=== PATIENT | male | born 1955 | race African-American/Black ===

== ENCOUNTER 2017-06-27 17:48 | Inpatient (IN) ==
[2017-06-27] MEDS ORDERED: SODIUM CHLORIDE 0.9% 1,000 ML IV STA (18:10)
[2017-06-27 18:34] LABS: Basophils # 0.1 10*3/uL (0.0-0.2); Basophils % 0.6 % (0.0-0.8); Eosinophils # 0.3 10*3/uL (0.0-0.87); Eosinophils % 3.5 % (0.00-10.9); Hematocrit 36.7 VOL% (42.0-52.0); Hemoglobin 12.1 GM/DL (14.0-18.0); Immature Granulocytes % 2.2 %; Immature Granulocytes Absolute 0.19 #; Lymphocytes # 1.7 10*3/uL (1.4-4.0); Lymphocytes % 19.4 % (21.2-54.2); Mean Corpuscular Hemoglobin 28 PG (27-34); Mean Corpuscular Volume 83.4 FL (87-102); Mean Platelet Volume 9.7 FL (9.6-12.0); Neutrophils # 5.5 10*3/uL (1.4-7.4); Neutrophils % 63.3 % (38.7-73.9); Platelet Count 234 T/CUMM (130-400); White Blood Count 8.7 T/CUMM (4-12)
[2017-06-27 18:58] LABS: PT Patient Result 10.1 SECS; Partial Thromboplastin Time 28.2 SECS (0-40)
[2017-06-27 19:07] LABS: Apearance,Urine CLEAR (Clear); Bilirubin,Total 1.5 MG/DL (0.2-1.0); Bilirubin,Urine Negative (Negative); Blood, Urine Negative (Negative); Calcium 8.9 MG/DL (8.5-10.1); Glucose,Urine (UA) >=500 mg/dL (Negative); Ketones,Urine Negative (Negative); Mucus,Urine Occasional /LPF (Occasional); Nitrite,Urine Negative (Negative); Osmolality,Calculated 280.9 MOS/KG (273-304); Potassium 4.4 MMOL/L (3.5-5.1); Protein,Urine 30 MG/DL; RBC,Urine <1 /HPF (0-4); Total Protein 8.1 G/DL (6.4-8.3); Urine Color Yellow (Yellow); Urine Specific Gravity 1.009 (1.001-1.035); Urine Urobilinogen < 2.0 EU/DL (0.2-1.0); WBC,Urine 5 /HPF (0-6)
--- NOTE | 2017-06-27 20:36 | Ultrasound Report ---
US abdomen limited Indication: Elevated bilirubin. Comparison: None. Technique: Using transcutaneous probe, ultrasound imaging of the right upper quadrant was performed. Ultrasound images were captured and stored. Imaged structures include the liver, gallbladder, pancreas, right kidney, aorta, and inferior vena cava. Findings: Pancreas cannot be identified secondary to bowel gas. Liver is not well-visualized. As measured, the right hepatic lobe is enlarged measuring 21 cm in craniocaudal dimension. Diffusely increased hepatic echotexture is present compared to the right renal cortex and loss of architectural detail is noted compatible with hepatic steatosis. The correct direction and spectral flow is noted within the interrogated portal venous segment. Gallbladder wall thickening is present and layering hyperechoic sludge is noted. Wall measures up to 6.2 mm. A thin rim of anechoic signal is present on some images compatible with a small amount pericholecystic fluid. The common bile duct is enlarged measuring 8.1 mm. Right kidney measures 11.3 cm in craniocaudal dimension. Impression: 1. Hyperechoic material within the gallbladder demonstrates some degree of layering, differential considerations include tumefactive sludge, focal gallbladder wall thickening, and tiny gallstones. The presence of gallbladder wall thickening associated as well as thin rim of hypoechoic echotexture suggesting pericholecystic fluid in total suggest acute cholecystitis. 2. Enlargement of the extrahepatic bile duct is noted without ultrasound evidence of choledocholithiasis. 3. Evaluation of pancreas is limited secondary to lack of visualization and bowel gas. Correlation serum lipase is recommended to exclude acute pancreatitis. 06/27/2017 8:28 PM PROCEDURE INTERPRETED AT [facility] DEPARTMENT OF RADIOLOGY Final Report Signed by: Dr. Tim Betancourt
--- NOTE | 2017-06-27 20:56 | CT Report ---
CT abdomen pelvis wo con Indication: Gallbladder mass. Comparison: Abdominal ultrasound same date. Technique: CT of the abdomen and pelvis was performed without administration of intravenous contrast. The CT examination was performed using one or more of the following dose reduction techniques: Automatic exposure control, adjustment of the mA and kV according to patient size, use of acute or iterative reconstruction techniques. Findings: A masslike focus of airspace attenuation is located within the posterior lateral right lower lobe. This measures up to 16 mm in thickness and 24 mm in longitudinal dimension. The appearance suggests that this may represent a focus of atelectasis of the lung parenchyma, follow-up will be required to determine stability. No acute findings are noted within the lower chest. STE[employer] shunt tubing enters the abdomen anterior to the liver. The tip of the shunt lies within the upper right abdomen interposed between the right hepatic lobe and the diaphragm. Noncontrast enhanced appearance of the liver suggests heterogeneous appearance of the right hepatic lobe. There is a ill-defined region of hypoattenuating echotexture laterally which measures up to 4.8 cm image #[id number] with a second ill-defined focus of hypoattenuation along the medial margin and subcapsular right hepatic lobe posterior segment image #55. These areas appear contiguous with the remainder of the liver which is diffusely low in attenuation. The liver appears enlarged. Bile ducts are not well visualized. Gallbladder demonstrates increased attenuation dependently within the gallbladder lumen. Gallbladder wall thickening demonstrated on recent ultrasound is not well visualized on this study. No pericholecystic stranding is present. Spleen is normal in size and appearance. Pancreas is grossly unremarkable. The adrenal glands demonstrate no significant abnormalities. Nonspecific bilateral perinephric fat stranding is present. Reflect scarring, acute inflammatory change, or sequelae of prior obstruction. Aorta and inferior vena cava demonstrate no significant abnormalities. Lower para-aortic lymph node is upper limits of normal in size to minimally large measuring 12 mm. Bilateral lower quadrant ostomies are demonstrated. The noncontrast enhanced appearance of small bowel is unremarkable. Stomach is unremarkable. Osseous structures demonstrate no acute findings. Severe femoral acetabular joint degenerative changes are present. Additionally ankylosis of the SI joints is suggested and facet arthropathy is moderately advanced bilaterally in the lower lumbar spine. Additionally, there is diffuse demineralization of bony structures suggested. This possibly reflects metabolic etiology. Calcification of anterior longitudinal ligament is present throughout the lumbar spine. Soft tissues and musculature of the body wall demonstrate no acute findings. Prior midline celiotomy is demonstrated. Calcified sutures are suggested along the midline of the anterior peritoneum. Impression: 1. STEAM [employer] shunt tubing terminates within the right upper quadrant interposed between the liver and the diaphragm. 2. Focal atelectasis of the right lower lobe versus mass is demonstrated. 3. Ill-defined hypoattenuation of the liver somewhat more focal within the right hepatic lobe, but contiguous with ill-defined hypoattenuating right and left hepatic lobe may reflect evidence of hepatic steatosis with focal sparing in the region of the right hepatic lobe. Further evaluation is limited secondary to lack of intravenous contrast. This region on comparison ultrasound is poorly visualized. 4. Gallbladder wall thickening demonstrated on ultrasound is not as well visualized on this modality. Intraluminal filling with tumefactive sludge, versus gallbladder wall thickening is again demonstrated. Acute cholecystitis could be considered. Extrahepatic bile duct is not well-visualized. Further evaluation of the gallbladder is not possible secondary to lack of intravenous contrast. 5. No specific abnormality of small or large bowel is demonstrated. 6. Appearance of the bony structures suggest a nonspecific pattern of demineralization. 06/27/2017 8:45 PM PROCEDURE INTERPRETED AT [facility] DEPARTMENT OF RADIOLOGY Final Report Signed by: Dr. Tim Betancourt
--- NOTE | 2017-06-27 21:00 | Emergency Department Note ---
Kiko Paul Brittany, am scribing for, and in the presence of, Stuart Chacon MD 18 :21. Oswaldo Paul Hans, MD, personally performed the services described in this documentation, ascribed by Lisa Hoover in my presence, and it is both accurate and complete . Arrival - Arrival Chief Complaint: Non-Specific ED Nursing Triage Note: pt has a ggt of 3882.blood in stool. 487 blood sugar. 1530 20u regu insulin and 20u levermir Mode of Arrival: Stretcher Limitations: No Limitations Source: Patient, RN Notes Reviewed Time Seen by Provider: 06/27/17 18:09 - History of Present Illness HPI Narrative: Patient is a 62 y/o black male presenting to the ED by EMS from [facility] for further evaluation of blood in stools, jaundice, elevated liver enzymes and elevated blood glucose levels. Patient was given 20 units of Regular Insulin and 20 units of Levamir prior to EMS arrival. Upon EMS arrival to facility patient notably still had an elevated blood glucose of 487. Patient had a GGT of 3882. Patient at this time denies any abdominal pain, chest pain, SOB, nausea or vomiting. No complaints. PMHx of Seizures, NIDDM, Colostomy. Allergies/Adverse Reactions: Allergies Allergy/AdvReac Type Severity Reaction Status Date / Time No Known Allergies Allergy Verified 02/09/17 13:52 Home Medications: Home Medications Medication Instructions Recorded Confirmed Type Acetaminophen Tab [Tylenol Tab] 650 mg PO BID 11/22/16 02/09/17 History Allopurinol 100 mg PO 0900 11/22/16 02/09/17 History Cholecalciferol (Vitamin D3) 2,000 unit PO DAILY 11/22/16 02/09/17 History [Vitamin D3] Esomeprazole Magnesium [Nexium] 40 mg PO DAILY 11/22/16 02/09/17 History Ferrous Sulfate 325 mg PO DAILY 11/22/16 02/09/17 History Folic Acid Tab 1 mg PO DAILY 11/22/16 02/09/17 History Insulin Detemir [Levemir] 15 unit SUBCUT 2100 11/22/16 02/09/17 History Lacosamide Tab [Vimpat Tab] 100 mg PO Q12H 11/22/16 02/09/17 History Multivitamin [Multivitamins] 1 each PO DAILY 11/22/16 02/09/17 History Phenytoin ER Cap [Dilantin Cap] 100 mg PO Q8H 11/22/16 02/09/17 History Valproic Acid 500 mg PO Q8H 11/22/16 02/09/17 History Alum/Mag/Simeth Liquid [Mylanta 30 ml PO Q4H PRN 02/09/17 02/09/17 History Liquid] Insulin Regular, Human [NovoLIN R] 0 - 14 units SUBCUT BID 02/09/17 02/09/17 History Review of System - Review of System 12 point system: reviewed and no additional remarkable complaints except as stated - Review of System Constitutional: Absent: chills, fever Eyes: Absent: vision change Head/Ears/Nose/Throat: Absent: nasal drainage, sore throat Respiratory: Absent: respiratory distress Cardiovascular: Absent: chest pain Gastrointestinal: Present: other (blood in stool). Absent: abdominal pain, nausea, vomiting Genitourinary male: Absent: urgency, dysuria, frequency Musculoskeletal: Absent: arm pain, back pain, leg pain, neck pain Skin: Absent: rash Medical,Surgical,& Family Hx - Medical History Neurology: History of: Seizures Endocrine: History of: Diabetes Mellitus (NIDDM) - Family History Family History: noncontributory - Social History Smoking Status: Never smoker Frequency of Alcohol Use: None Type of Drug Use: None Exam Vital Signs: Vital Signs Temperature 98.1 F 06/27/17 17:48 Pulse Rate 84 06/27/17 17:48 Respiratory Rate 18 06/27/17 18:10 Blood Pressure 128/78 06/27/17 17:48 O2 Sat by Pulse Oximetry 100 06/27/17 17:48 - General General appearance: alert, in no apparent distress - Head Head exam: Present: atraumatic, normocephalic, normal inspection - Eye Eye exam: Present: normal appearance, PERRL, EOMI - ENT ENT exam: Present: normal exam, normal oropharynx - Neck Neck exam: Present: normal inspection, full ROM, trachea midline - Chest Chest inspection: Present: normal inspection, symmetric chest wall rise - Respiratory Respiratory exam: Present: normal lung sounds bilaterally - Cardiovascular Cardiovascular exam: Present: regular rate, normal rhythm, normal heart sounds - Abdominal Exam Abdominal exam: Present: soft, normal bowel sounds, incision (scar consistent with prior abdominal surgery), other (colostomy). Absent: tenderness Course Course Narrative: The patient has evidence of biliary pancreatitis. His exam is difficult because of his mental status. Hospitalist who agreed to see him for admission. I would not recommend cholecystectomy given the patient's extensive abdominal surgery think you would be better served with conservative management such as Actigall and possible ERCP with sphincterotomy to prevent future episodes of pancreatitis Results - Labs CBC & BMP: 06/27/17 18:27 06/27/17 18:27 Lab Results: I have reviewed the patients labs Labs: Laboratory Tests 06/27/17 18:27 WBC 8.7 RBC 4.40 Hgb 12.1 L Hct 36.7 L MCV 83.4 L Plt Count 234 Lymph % (Auto) 19.4 L Toole # (Auto) 1.0 H Laboratory Tests 06/27/17 18:27 INR 1.0 PT Patient/Control Mix 10.1 Circ Anticoag PTT 28.2 Laboratory Tests 06/27/17 06/27/17 18:27 18:27 Sodium 129 L Potassium 4.4 Chloride 98 Carbon Dioxide 21 BUN 31 H Creatinine 1.60 H Glucose 383 H Total Bilirubin 1.50 H GGT 4724 H AST 98 H ALT 300 H Alkaline Phosphatase 860 H Albumin 3.0 L Globulin 5.1 H Albumin/Globulin Ratio 0.5 L Lipase 977.0 H Urine Color Yellow Urine Appearance Clear Urine pH 5.0 Ur Specific Marshall 1.009 Urine Protein 30 Urine Glucose (UA) >=500 Urine Ketones Negative Urine Blood Negative Urine Nitrate Negative Urine Bilirubin Negative Urine Urobilinogen < 2.0 H Urine Leukocytes Negative Urine RBC <1 Urine WBC 5 Urine Mucus Occasional Laboratory Tests 06/27/17 18:27 CA 19-9 Antigen 31.9 - Diagnostic Findings Procedure: Ultrasound: report reviewed by me (Abdomen US: 1. Hyperechoic material within the gallbladder demonstrates some degree of layering, differential considerations include tumefactive sludge, focal gallbladder wall thickening, and tiny gallstones. The presence of gallbladder wall thickening associated as well as thin rim of hypoechoic echotexture suggesting pericholecystic fluid in total suggest acute cholecystitis. 2. Enlargement of the extrahepatic bile duct is noted without ultrasound evidence of choledocholithiasis. 3. Evaluation of pancreas is limited secondary to lack of visualization and bowel gas. Correlation serum lipase is recommended to exclude acute pancreatitis.) Disposition Clinical Impression: Pancreatitis, acute Case discussed with: patient Disposition: Still a Patient Condition: Stable Time of Disposition: 21:00
[2017-06-27] MEDS ORDERED: GLUCAGON 1 MG VIAL IM PRN (21:28)
[2017-06-27] MEDS ORDERED: DEXTROSE 50% 25 GM/50 ML SYRINGE IV PRN (21:28)
[2017-06-27] MEDS ORDERED: ONDANSETRON 4 MG/2 ML VIAL IV PRN (21:28)
--- NOTE | 2017-06-27 21:40 | Hospitalist History & Physical ---
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 The abdominal CT showed gallbladder wall thickening was not as significant as the ultrasound. There was some sludge versus gallbladder wall thickening demonstrated. Acute cholecystitis could be considered per the CT scan. Patient 's liver seem to be having a hypoattenuating you awaiting right and left hepatic lobes possibly reflecting hepatic steatosis with focal sparing in the region of the right hepatic lobe. The CT scan also displayed a masslike focus of airspace attenuation within the posterior lateral right lower lobe. The appearance suggests that may represent a focal of atelectasis and follow-up is recommended to determine stability. This can be accomplished on an outpatient basis . The ultrasound displayed possible cholecystitis and enlargement of the extrahepatic duct. Overall the patient would be a poor surgical candidate. We will admit the patient to our service. Recheck labs. Monitor his sugar. Get GI to see him he might possibly need an ERCP and get surgery to see him for possible placement of a drain. Current Visit: Yes History of Present Illness Chief complaint: Sent from [facility] for abnormal labs increase glucose and blood in stoo History of present illness: Mr. 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 From the paperwork supplied by the [facility] they checked a GGT which displayed a little 3882. They claim that there was blood in the stool which he has a colostomy which does not have visible blood in it. He had elevated glucose at the [facility] that was treated with 20 units regular and 20 units Levemir. Upon arrival here patient sugar was still elevated received a liter of fluid. Labs have been repeated. Patient is a poor historian but reports that he got the feeling bad. He is complaining about multiple pains on his body but when you look at the places he is talking about it looks like he scratched himself. Currently per my physical exam I cannot detect any abdominal pain chest pain or shortness of breath nausea or vomiting. I was consulted to admit him through the emergency room. Home Medications Medication Instructions Recorded Confirmed Type Acetaminophen Tab [Tylenol Tab] 650 mg PO BID 11/22/16 02/09/17 History Allopurinol 100 mg PO 0900 11/22/16 02/09/17 History Cholecalciferol (Vitamin D3) 2,000 unit PO DAILY 11/22/16 02/09/17 History [Vitamin D3] Esomeprazole Magnesium [Nexium] 40 mg PO DAILY 11/22/16 02/09/17 History Ferrous Sulfate 325 mg PO DAILY 11/22/16 02/09/17 History Folic Acid Tab 1 mg PO DAILY 11/22/16 02/09/17 History Insulin Detemir [Levemir] 15 unit SUBCUT 2100 11/22/16 02/09/17 History Lacosamide Tab [Vimpat Tab] 100 mg PO Q12H 11/22/16 02/09/17 History Multivitamin [Multivitamins] 1 each PO DAILY 11/22/16 02/09/17 History Phenytoin ER Cap [Dilantin Cap] 100 mg PO Q8H 11/22/16 02/09/17 History Valproic Acid 500 mg PO Q8H 11/22/16 02/09/17 History Alum/Mag/Simeth Liquid [Mylanta 30 ml PO Q4H PRN 02/09/17 02/09/17 History Liquid] Insulin Regular, Human [NovoLIN R] 0 - 14 units SUBCUT BID 02/09/17 02/09/17 History Allergies Allergy/AdvReac Type Severity Reaction Status Date / Time No Known Allergies Allergy Verified 02/09/17 13:52 Medical,Surgical,& Family Hx - Medical History Neurology: History of: Seizures Endocrine: History of: Diabetes Mellitus (NIDDM) - Surgical History Abdominal Surgeries: Surgical HX of: Abdominal Surgery - Family History Family History: noncontributory (Unable to obtain) - Social History Smoking Status: Never smoker Frequency of Alcohol Use: None Type of Drug Use: None ROS unobtainable: due to mental status Exam - Constitutional Vitals: Period Temp Pulse Resp BP Sys/Liang Pulse Ox Last 24 Hr 98.1 F-98.1 F 84-84 18-18 128-128/78-78 100 General appearance: over weight - Head Head exam: Present: normal inspection - Eye Eye exam: Present: EOMI Pupils: Present: NALDO - ENT ENT exam: Present: normal exam - Neck Neck exam: Present: normal inspection - Respiratory Respiratory exam: Present: clear to auscultation bilaterally - Cardiovascular Cardiovascular exam: Present: regular rate and rhythm - GI/Abdominal GI/Abdominal exam: Present: normal bowel sounds, other (Colostomy in place along with a significant midline scar) - Extremities Exam Extremities exam: Present: normal inspection Results - Labs CBC & BMP: 06/27/17 18:27 06/27/17 18:27
[2017-06-27] MEDS ORDERED: VALPROIC ACID 500 MG PO SCH (21:45)
[2017-06-28] MEDS: LACOSAMIDE 50 MG TABLET PO SCH ×3 (00:19→22:29)
[2017-06-28] MEDS: PHENYTOIN ER 100 MG CAPSULE PO SCH ×4 (00:20→22:29)
[2017-06-28 06:04] LABS: Basophils % 0.5 % (0.0-0.8); Eosinophils # 0.3 10*3/uL (0.0-0.87); Eosinophils % 3.8 % (0.00-10.9); Hematocrit 35.9 VOL% (42.0-52.0); Hemoglobin 11.1 GM/DL (14.0-18.0); Immature Granulocytes % 1.9 %; Immature Granulocytes Absolute 0.15 #; Lymphocytes # 1.4 10*3/uL (1.4-4.0); Lymphocytes % 17.6 % (21.2-54.2); Mean Corpuscular HGB Conc 30.9 GM/DL (32-36); Mean Corpuscular Hemoglobin 27 PG (27-34); Mean Corpuscular Volume 86.7 FL (87-102); Mean Platelet Volume 10.3 FL (9.6-12.0); Monocytes % 12.7 % (1.7-12.7); NRBC # 0.02 10*3/uL; Neutrophils % 63.5 % (38.7-73.9); Platelet Count 203 T/CUMM (130-400); Red Blood Count 4.14 MC/CUMM (3.8-5.5); Red Cell Distribution Width 16.5 % (9.3-17.3); White Blood Count 7.8 T/CUMM (4-12)
[2017-06-28 06:31] LABS: Albumin 2.9 G/DL (3.4-5.0); Bilirubin,Total 1.3 MG/DL (0.2-1.0); Calcium 8.9 MG/DL (8.5-10.1); Osmolality,Calculated 281.1 MOS/KG (273-304); Potassium 4.3 MMOL/L (3.5-5.1); Total Protein 6.9 G/DL (6.4-8.3)
--- NOTE | 2017-06-28 07:21 | General Surgery Consult Note ---
Assessment and Plan (1) Biliary acute pancreatitis Status: Acute Assessment and plan: This patient has biliary pancreatitis and a dilated bile duct and increased LFTs. He does have some wall thickening in the gallbladder which is chronic. It is difficult to tell if he is tender on exam. He does have some guarding that is involuntary in the right upper quadrant and midepigastric region. 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 I do think an ERCP with sphincterotomy would be beneficial in order to allow passage of the sludge coming from his gallbladder if GI is agreeable to this. I would also recommend Actigall. I will continue to follow the patient. Current Visit: Yes History of Present Illness Chief complaint: Abdominal pain History of present illness: Mr. Thomas is a 62 year old male who presented to the ER with apparent pancreatitis and presumed biliary origin with sludge in the gallbladder. He is not complaining of any tenderness but he has a fairly limited exam due to his mental status. His lipase was around 1000 last night and the current lab this morning is pending. Bile duct is dilated on ultrasound. Home Medications Medication Instructions Recorded Confirmed Type Acetaminophen Tab [Tylenol Tab] 650 mg PO BID 11/22/16 02/09/17 History Allopurinol 100 mg PO 0900 11/22/16 02/09/17 History Cholecalciferol (Vitamin D3) 2,000 unit PO DAILY 11/22/16 02/09/17 History [Vitamin D3] Esomeprazole Magnesium [Nexium] 40 mg PO DAILY 11/22/16 02/09/17 History Ferrous Sulfate 325 mg PO DAILY 11/22/16 02/09/17 History Folic Acid Tab 1 mg PO DAILY 11/22/16 02/09/17 History Insulin Detemir [Levemir] 15 unit SUBCUT 2100 11/22/16 02/09/17 History Lacosamide Tab [Vimpat Tab] 100 mg PO Q12H 11/22/16 02/09/17 History Multivitamin [Multivitamins] 1 each PO DAILY 11/22/16 02/09/17 History Phenytoin ER Cap [Dilantin Cap] 100 mg PO Q8H 11/22/16 02/09/17 History Valproic Acid 500 mg PO Q8H 11/22/16 02/09/17 History Alum/Mag/Simeth Liquid [Mylanta 30 ml PO Q4H PRN 02/09/17 02/09/17 History Liquid] Insulin Regular, Human [NovoLIN R] 0 - 14 units SUBCUT BID 02/09/17 02/09/17 History Allergies Allergy/AdvReac Type Severity Reaction Status Date / Time No Known Allergies Allergy Verified 02/09/17 13:52 Medical,Surgical,& Family Hx - Medical History Neurology: History of: Seizures Endocrine: History of: Diabetes Mellitus (NIDDM) - Surgical History Neurologic Surgeries: Surgical HX of: Neurologic Surgery (Ventriculoperitoneal shunt) Abdominal Surgeries: Surgical HX of: Abdominal Surgery (Colostomy) - Social History Smoking Status: Never smoker Frequency of Alcohol Use: None Type of Drug Use: None - Constitutional Constitutional: Present: as per HPI - EENT Nose, mouth and throat: Present: as per HPI - Cardiovascular Cardiovascular: Present: as per HPI - Respiratory Respiratory: Present: as per HPI - Gastrointestinal Gastrointestinal: Present: as per HPI - Genitourinary Genitourinary: Present: as per HPI - Musculoskeletal Musculoskeletal: Present: as per HPI - Neurological Neurological: Present: as per HPI - Endocrine Endocrine: Present: as per HPI Hematologic/Lymphatic: Present: as per HPI Exam - Constitutional Vitals: Period Temp Pulse Resp BP Sys/Liang Pulse Ox Last 24 Hr 96.7 F-98.1 F 75-84 13-20 128-147/68-83 100-100 General appearance: no acute distress, over weight - Head Head exam: Present: normal inspection, normocephalic - Eye Eye exam: Present: EOMI Pupils: Present: NALDO - ENT ENT exam: Present: normal exam Mouth exam: Present: normal external inspection, normal voice - Neck Neck exam: Present: normal inspection, trachea midline - Respiratory Respiratory exam: Present: accessory muscle use, chest wall tenderness. Absent : clear to auscultation bilaterally - Cardiovascular Cardiovascular exam: Present: RRR. Absent: systolic murmur, tachycardia - GI/Abdominal GI/Abdominal exam: Present: normal bowel sounds, soft. Absent: tenderness, rebound - Extremities Exam Extremities exam: Present: normal inspection, normal capillary refill - Back Exam Back exam: Present: normal inspection - Neurological Exam Neurological exam: Present: alert, oriented X3 Speech: Present: normal - Skin Skin exam: Present: normal color, warm Results - Labs CBC & BMP: 06/28/17 05:49 06/28/17 05:49 - Diagnostic Findings Procedure: CT Abdomen and Pelvis: image reviewed by me, report reviewed by me, Ultrasound: image reviewed by me, report reviewed by me
[2017-06-28] MEDS: INSULIN REGULAR 100 UNIT/ML SUBCUT SCH ×2 (08:10→16:37)
[2017-06-28] MEDS: PANTOPRAZOLE 40 MG TABLET PO SCH (08:11)
[2017-06-28] MEDS: DIVALPROEX 500 MG TABLET PO SCH ×3 (08:11→22:29)
[2017-06-28] MEDS: URSODIOL 300 MG CAPSULE PO SCH ×2 (08:11→22:29)
[2017-06-28] MEDS: ALLOPURINOL 100 MG TABLET PO SCH (08:14)
--- NOTE | 2017-06-28 09:29 | Gastrointestinal Consult Note ---
<Gabrielle Sen - Last Filed: 06/28/17 09:21> Assessment and Plan (1) Abdominal pain Status: Acute Assessment and plan: 06/28-initial reports of abdominal pain prior to admission with findings on exam of elevated LFTs and lipase as well as imaging findings of dilated common bile duct and questionable cholecystitis and cholelithiasis. Surgery consult noted with recommendations for possible ERCP, patient nonsurgical. Noted that Actigall has been initiated. Plan an addendum to follow by Dr. Ramirez. Current Visit: Yes History of Present Illness Chief complaint: Abdominal pain History of present illness: Mr. Thomas is a 62 year old male who was admitted to the hospital with complaints of abdominal pain. Patient is a very poor historian and unable to contribute to historical information. Information is obtained from chart review. Patiently reported began "not feeling well" at the [facility] , where he is a permanent resident, and was brought to the hospital for further evaluation. Patient has a prior history of diabetes, HORSESHOER shunt, developmental delay, seizure disorder. On routine lab work at the [facility] he was found to have an elevated GGT of 3800 as well as reported blood in his stool inside his colostomy bag. He had complaints in the emergency room of some abdominal pain and at that time was found to have an elevated lipase level of 977 as well as elevated LFTs with a bilirubin of 1.5, AST 98, ALT 300, and alkaline phosphatase 860. He had an H&H of 12/36 as well. Patient had a CA-19-9 checked and was unremarkable at 31.9. He also had an abdominal ultrasound done which showed focal gallbladder wall thickening and possible tiny gallstones with suggestion of acute cholecystitis as well as enlargement of extrahepatic bile duct with a common bile duct of 8.1 mm without evidence of choledocholithiasis. Patient also underwent a noncontrasted CT with findings of ill-defined hypoattenuation of the liver in the right hepatic lobe as well as gallbladder wall thickening and findings of sludge. Surgery has consulted with patient and feels this is nonsurgical at this time with recommendations for possible ERCP. Patient does have an extensive history of abdominal surgeries related to colonic distention and intermittent volvulus in 2013 with 2 episodes of wound dehiscence following this. He also has a prior history of PEG tube placement which is no longer in use. Patient is seen this morning, resting comfortably, with good appetite noted and no complaints of pain with meal intake. Home Medications Medication Instructions Recorded Confirmed Type Acetaminophen Tab [Tylenol Tab] 650 mg PO BID 11/22/16 02/09/17 History Allopurinol 100 mg PO 0900 11/22/16 02/09/17 History Cholecalciferol (Vitamin D3) 2,000 unit PO DAILY 11/22/16 02/09/17 History [Vitamin D3] Esomeprazole Magnesium [Nexium] 40 mg PO DAILY 11/22/16 02/09/17 History Ferrous Sulfate 325 mg PO DAILY 11/22/16 02/09/17 History Folic Acid Tab 1 mg PO DAILY 11/22/16 02/09/17 History Insulin Detemir [Levemir] 15 unit SUBCUT 2100 11/22/16 02/09/17 History Lacosamide Tab [Vimpat Tab] 100 mg PO Q12H 11/22/16 02/09/17 History Multivitamin [Multivitamins] 1 each PO DAILY 11/22/16 02/09/17 History Phenytoin ER Cap [Dilantin Cap] 100 mg PO Q8H 11/22/16 02/09/17 History Valproic Acid 500 mg PO Q8H 11/22/16 02/09/17 History Alum/Mag/Simeth Liquid [Mylanta 30 ml PO Q4H PRN 02/09/17 02/09/17 History Liquid] Insulin Regular, Human [NovoLIN R] 0 - 14 units SUBCUT BID 02/09/17 02/09/17 History Allergies Allergy/AdvReac Type Severity Reaction Status Date / Time No Known Allergies Allergy Verified 02/09/17 13:52 Medical,Surgical,& Family Hx - Medical History Neurology: History of: Seizures Endocrine: History of: Diabetes Mellitus (NIDDM) - Surgical History Neurologic Surgeries: Surgical HX of: Neurologic Surgery (Ventriculoperitoneal shunt) Abdominal Surgeries: Surgical HX of: Abdominal Surgery (Colostomy) - Social History Smoking Status: Never smoker Frequency of Alcohol Use: None Type of Drug Use: None ROS unobtainable: due to mental status Exam - Constitutional Vitals: Period Temp Pulse Resp BP Sys/Liang Pulse Ox Last 24 Hr 96.7 F-98.1 F 75-84 13-20 128-147/68-83 100-100 General appearance: no acute distress, over weight - Head Head exam: Present: normal inspection, normocephalic - Eye Eye exam: Present: other (Lids and conjunctive are unremarkable). Absent: scleral icterus - ENT ENT exam: Present: normal exam, normal oropharynx - Neck Neck exam: Present: normal inspection - Respiratory Respiratory exam: Present: clear to auscultation bilaterally. Absent: rales, rhonchi, wheezes - Cardiovascular Cardiovascular exam: Present: regular rate and rhythm. Absent: diastolic murmur , JVD, systolic murmur - GI/Abdominal GI/Abdominal exam: Present: normal bowel sounds, soft. Absent: ascites, distended, mass, organomegaly, tenderness - Extremities Exam Extremities exam: Present: normal inspection, full ROM - Back Exam Back exam: Present: normal inspection - Neurological Exam Neurological exam: Present: alert, altered - Psychiatric Psychiatric exam: Present: normal affect, normal mood - Skin Skin exam: Present: normal color, warm, dry Results - Labs CBC & BMP: 06/28/17 05:49 06/28/17 05:49 Lab Results: I have reviewed the past 24 hour labs <Frank Ramirez - Last Filed: 06/28/17 19:07> History of Present Illness History of present illness: Mr. Thomas is a 62 year old male Exam - Constitutional Vitals: Period Temp Pulse Resp BP Sys/Liang Pulse Ox Last 24 Hr 96.7 F-98.3 F 75-85 13-20 131-155/68-83 100-100 Results - Labs CBC & BMP: 06/28/17 05:49 06/28/17 05:49
--- NOTE | 2017-06-28 17:56 | Hospitalist Progress Note ---
Hospitalist: Subjective Interval history: 62-year-old male who was admitted with biliary pancreatitis with elevated LFTs. Currently he denies abdominal pain and is quite calm and comfortable. Exam - Constitutional Vitals: Period Temp Pulse Resp BP Sys/Liang Pulse Ox Last 24 Hr 96.7 F-98.3 F 75-85 13-20 131-155/68-83 100-100 Exam: General: No Acute Distress HEENT: Normocephalic, atraumatic, Extra ocular movements intact Neck: Supple, No JVD Chest: Clear to auscultation B/L CV: S1 + S2 audible without murmur, gallop or rub Abd: soft, NT, Non-distended, BS + Ext: No edema Skin: No purpura, bruising or rash Rheumatologic: No Joint deformities Neurologic: No gross sensory deficits Results - Labs CBC & BMP: 06/28/17 05:49 06/28/17 05:49 - Impressions Assessment and Plan (1) Acute biliary pancreatitis Status: Acute Current Visit: Yes (2) Diabetes Status: Acute Current Visit: Yes (3) Developmentally delayed with chronic seizure disorder Status: Acute Current Visit: Yes (4) History of ONLINE EDITOR shunt Status: Acute Current Visit: Yes
[2017-06-28] MEDS: INSULIN GLARGINE 100 UNIT/ML SUBCUT SCH (22:07)
[2017-06-29 05:32] LABS: Basophils # 0.1 10*3/uL (0.0-0.2); Basophils % 0.6 % (0.0-0.8); Eosinophils # 0.3 10*3/uL (0.0-0.87); Eosinophils % 3.9 % (0.00-10.9); Hematocrit 34.4 VOL% (42.0-52.0); Hemoglobin 11.2 GM/DL (14.0-18.0); Immature Granulocytes % 1.8 %; Immature Granulocytes Absolute 0.16 #; Lymphocytes # 1.8 10*3/uL (1.4-4.0); Lymphocytes % 20.2 % (21.2-54.2); Mean Corpuscular HGB Conc 32.6 GM/DL (32-36); Mean Corpuscular Hemoglobin 27 PG (27-34); Mean Corpuscular Volume 83.5 FL (87-102); Mean Platelet Volume 10.4 FL (9.6-12.0); Monocytes # 1.2 10*3/uL (0.11-0.8); Monocytes % 13.5 % (1.7-12.7); Neutrophils # 5.2 10*3/uL (1.4-7.4); Platelet Count 209 T/CUMM (130-400); Red Blood Count 4.12 MC/CUMM (3.8-5.5); Red Cell Distribution Width 16.3 % (9.3-17.3); White Blood Count 8.7 T/CUMM (4-12)
[2017-06-29 05:38] LABS: PT Patient Result 10.3 SECS
[2017-06-29] MEDS: PHENYTOIN ER 100 MG CAPSULE PO SCH ×3 (05:39→21:20)
[2017-06-29 07:12] LABS: Calcium 9.4 MG/DL (8.5-10.1); Osmolality,Calculated 284.8 MOS/KG (273-304); Potassium 4.5 MMOL/L (3.5-5.1)
--- NOTE | 2017-06-29 07:15 | EKG Report ---
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
[2017-06-29] MEDS: INSULIN REGULAR 100 UNIT/ML SUBCUT SCH ×2 (07:39→16:11)
--- NOTE | 2017-06-29 07:49 | General Surgery Progress Note ---
Assessment and Plan (1) Biliary acute pancreatitis Status: Acute Assessment and plan: This patient is scheduled for ERCP today. Continue physical therapy. 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 The main issue I think this is a MIDDLE SCHOOL PE TEACHER shunt which sits in his gallbladder fossa and has been infected in the past with prior operations requiring revision by neurosurgery. If he does end up needing to have abdominal surgery would be ideal for him to be referred to a center that has neurosurgery coverage to assist with management of his MIDDLE SCHOOL PE TEACHER shunt perioperatively. If the cystic duct is open I think it is reasonable to give Actigall therapy and follow him clinically but we will see what the results of the ERCP show us. Current Visit: Yes Subjective Patient reports: Present: no new complaints, afebrile Exam - Constitutional Vitals: Period Temp Pulse Resp BP Sys/Liang Pulse Ox Last 24 Hr 96.5 F-98.3 F 78-100 15-20 125-155/70-77 81-100 General appearance: no acute distress, over weight - Head Head exam: Present: normal inspection, normocephalic - Eye Eye exam: Present: EOMI. Absent: scleral icterus Pupils: Present: NALDO - ENT ENT exam: Present: normal exam Mouth exam: Present: normal external inspection, normal voice - Neck Neck exam: Present: normal inspection, trachea midline - Respiratory Respiratory exam: Present: clear to auscultation bilaterally. Absent: accessory muscle use, chest wall tenderness - Cardiovascular Cardiovascular exam: Present: RRR. Absent: systolic murmur, tachycardia - GI/Abdominal GI/Abdominal exam: Present: normal bowel sounds, soft. Absent: tenderness, rebound - Extremities Exam Extremities exam: Present: normal inspection, normal capillary refill - Back Exam Back exam: Present: normal inspection - Neurological Exam Neurological exam: Present: alert, oriented X3 - Skin Skin exam: Present: normal color, warm Results - Labs CBC & BMP: 06/29/17 05:10 06/29/17 05:10
[2017-06-29] MEDS: URSODIOL 300 MG CAPSULE PO SCH ×2 (08:23→21:19)
[2017-06-29] MEDS: LACOSAMIDE 50 MG TABLET PO SCH ×2 (08:24→21:20)
[2017-06-29] MEDS: PANTOPRAZOLE 40 MG TABLET PO SCH (08:24)
[2017-06-29] MEDS: ALLOPURINOL 100 MG TABLET PO SCH (08:24)
[2017-06-29] MEDS: DIVALPROEX 500 MG TABLET PO SCH ×3 (08:25→21:19)
[2017-06-29] MEDS ORDERED: GLUCAGON 1 MG VIAL ONE (12:23)
[2017-06-29] MEDS ORDERED: PROPOFOL 200 MG/20 ML VIAL IV ONE (13:26)
[2017-06-29] MEDS ORDERED: fentaNYL 100 MCG/2 ML VIAL ONE (13:27)
[2017-06-29] MEDS ORDERED: NEOSTIGMINE 10 MG/10 ML VIAL ONE (13:27)
[2017-06-29] MEDS ORDERED: LACTATED RINGERS 1,000 ML IV ONE (13:27)
[2017-06-29] MEDS ORDERED: MIDAZOLAM 2 MG/2 ML VIAL ONE (13:27)
[2017-06-29] MEDS ORDERED: SUCCINYLCHOLINE 200 MG/10 ML VIAL ONE (13:27)
[2017-06-29] MEDS ORDERED: GLYCOPYRROLATE 0.4 MG/2 ML VIAL ONE (13:28)
--- NOTE | 2017-06-29 13:28 | Fluoroscopy Report ---
[place] ERCP Indication: Pain Comparison: None Technique: Multiple intraoperative fluoroscopic views of the biliary tree obtained during ERCP. Fluoroscopy time 4 minutes 3 seconds. 440 total images. Findings: Images obtained during ERCP procedure. There is no evidence of common ductal dilatation. Please see procedural report for details. IMPRESSION: As above. PROCEDURE INTERPRETED AT [facility] DEPARTMENT OF RADIOLOGY Final Report Signed by: Dr Supa Ag
--- NOTE | 2017-06-29 15:05 | Anesthesia Post-Op ---
Anesthesia Post OP - Post Ansesthetic Evaluation Patient seen in post op: Yes Resp: within normal limits CV: within normal limits Mental: within normal limits Temp: within normal limits [id number]-[id number]-[id number]: within normal limits Nausea and Vomiting: within normal limits Pain: within normal limits
--- NOTE | 2017-06-29 16:42 | Hospitalist Progress Note ---
Assessment and Plan (1) Abdominal pain Status: Acute Assessment and plan: Dr. granda no is appreciated. We are trying to avoid operative management of the biliary system due to the patient's STABLE HAND shunt. I am continuing to coordinate care with the continuous still operator concerning as to the next step of his care. We will recheck electrolytes and amylase lipase tomorrow Current Visit: Yes (2) History of STABLE HAND shunt Status: Acute Current Visit: Yes (3) Biliary acute pancreatitis Status: Acute Current Visit: Yes Hospitalist: Subjective Interval history: The patient was admitted the hospital with moderate pancreatitis thought to be due to biliary obstruction. ERCP does not reveal stones in the common bile duct. The patient is resting quietly at present and abdominal pain seems to be improving. Exam - Constitutional Vitals: Period Temp Pulse Resp BP Sys/Liang Pulse Ox Last 24 Hr 96.5 F-97.7 F 81-104 12-20 124-205/69-95 81-100 General appearance: no acute distress - Respiratory Respiratory exam: Present: clear to auscultation bilaterally - Cardiovascular Cardiovascular exam: Present: regular rate and rhythm Results - Labs CBC & BMP: 06/29/17 05:10 06/29/17 05:10 Lab Results: I have reviewed the past 24 hour labs
--- NOTE | 2017-06-29 19:29 | Operative Note ---
Date of procedure: 06/29/17 Pre-op diagnosis: Gallstone pancreatitis Procedure: Endoscopic retrograde cholangiopancreatography with sphincterotomy and balloon stone extraction in the operating room. 62-year-old gentleman with gallstone pancreatitis ultrasound suggests cholelithiasis elevated lipase and abnormal liver test suggestive of choledocholithiasis. Now for ERCP to further evaluate. Informed consent was obtained patient's family Patient was sedated with general anesthesia per anesthesia record. Patient was placed initially in the prone position after he was intubated however his neck was too stiff to be turned he had to be rotated to the left lateral decubitus position. The Olympus duodenal scope was inserted blindly into the esophagus the esophagus stomach pylorus duodenum appear grossly normal. A sphincterotome was utilized and the pancreatic duct appeared normal throughout the head body and tail the pancreas. Subsequently the catheter was repositioned and the biliary tree was opacified with findings of a nondilated biliary tree but suspicious filling defect for possible choledocholithiasis. The cystic duct appeared patent and gallstones were observed in the gallbladder it was elected at this point to proceed with sphincterotomy and an 8 mm sphincterotomy was performed with good hemostasis. Subsequent balloon catheter was inserted in the biliary tree and inflated times to the port of the duodenum with removal of some biliary sludge type material. Repeat cholangiogram showed no residual stone fragments. The procedure was terminated placed our procedure well he is discharged to recovery in care of anesthesia. Postop diagnosis: 1. Choledocholithiasis now status post successful ERCP sphincterotomy 2. Pancreatitis likely secondary to the above 3. Cholelithiasis with monitor clinical symptoms at this time and continue treatment with antibiotics. If clinical deterioration occurs consideration of cholecystostomy tube. Anesthesia: MAC Surgeon / Physician: Frank Ramirez Estimated blood loss: none Specimens: none sent Condition: stable Disposition: post procedure unit Results - Labs CBC & BMP: 06/29/17 05:10 06/29/17 05:10 Discharge Plan - Discharge Medications No Action Lacosamide Tab [Vimpat Tab] 100 mg PO Q12H Ferrous Sulfate 325 mg PO DAILY Acetaminophen Tab [Tylenol Tab] 650 mg PO BID Insulin Regular, Human [NovoLIN R] 0 - 14 units SUBCUT BID Insulin Detemir [Levemir] 15 unit SUBCUT 2100 Folic Acid Tab 1 mg PO DAILY Cholecalciferol (Vitamin D3) [Vitamin D3] 2,000 unit PO DAILY Valproic Acid 500 mg PO Q8H Allopurinol 100 mg PO 0900 Phenytoin ER Cap [Dilantin Cap] 100 mg PO Q8H Multivitamin [Multivitamins] 1 each PO DAILY Esomeprazole Magnesium [Nexium] 40 mg PO DAILY Alum/Mag/Simeth Liquid [Mylanta Liquid] 30 ml PO Q4H PRN PRN Reason: Indigestion - Follow Up or Referral - Forms/Instructions
[2017-06-29] MEDS: INSULIN GLARGINE 100 UNIT/ML SUBCUT SCH (21:19)
[2017-06-30] MEDS: PHENYTOIN ER 100 MG CAPSULE PO SCH ×3 (05:27→22:36)
[2017-06-30 07:13] LABS: Basophils % 0.3 % (0.0-0.8); Eosinophils # 0.2 10*3/uL (0.0-0.87); Eosinophils % 1.6 % (0.00-10.9); Hematocrit 34.5 VOL% (42.0-52.0); Hemoglobin 11.1 GM/DL (14.0-18.0); Immature Granulocytes % 1.2 %; Immature Granulocytes Absolute 0.12 #; Lymphocytes # 1.2 10*3/uL (1.4-4.0); Lymphocytes % 11.8 % (21.2-54.2); Mean Corpuscular HGB Conc 32.2 GM/DL (32-36); Mean Corpuscular Hemoglobin 27 PG (27-34); Mean Corpuscular Volume 83.9 FL (87-102); Mean Platelet Volume 10.2 FL (9.6-12.0); Monocytes # 1.2 10*3/uL (0.11-0.8); Neutrophils # 7.6 10*3/uL (1.4-7.4); Neutrophils % 73.1 % (38.7-73.9); Platelet Count 212 T/CUMM (130-400); Red Blood Count 4.11 MC/CUMM (3.8-5.5); Red Cell Distribution Width 15.9 % (9.3-17.3); White Blood Count 10.3 T/CUMM (4-12)
[2017-06-30 07:48] LABS: Bilirubin,Total 1.9 MG/DL (0.2-1.0); Calcium 9.3 MG/DL (8.5-10.1); Osmolality,Calculated 288.7 MOS/KG (273-304); Potassium 4.4 MMOL/L (3.5-5.1); Total Protein 7.1 G/DL (6.4-8.3)
[2017-06-30] MEDS: INSULIN REGULAR 100 UNIT/ML SUBCUT SCH ×2 (08:53→16:41)
--- NOTE | 2017-06-30 09:27 | Gastrointestinal Progress Note ---
<FrancyGabrielle Luz - Last Filed: 06/30/17 09:25> Assessment and Plan (1) Abdominal pain Status: Acute Assessment and plan: 06/30-no complaints of abdominal pain. ERCP findings noted as below. Lipase elevated today. Continue n.p.o. at present time. Recheck lipase levels tomorrow. Plan an addendum to follow by Dr. Ramirez. 06/28-initial reports of abdominal pain prior to admission with findings on exam of elevated LFTs and lipase as well as imaging findings of dilated common bile duct and questionable cholecystitis and cholelithiasis. Surgery consult noted with recommendations for possible ERCP, patient nonsurgical. Noted that Actigall has been initiated. Plan an addendum to follow by Dr. Ramirez. Current Visit: Yes Gastroenterology - PN: Subj Interval history: CC: Gallstone pancreatitis Patient is seen, sitting up in bed awake and alert. He appears to be resting comfortably and denies any abdominal pain. He denies any nausea or vomiting. ERCP findings noted with choledocholithiasis and sphincterotomy on yesterday. He is afebrile without leukocytosis this morning. Bilirubin is slightly elevated at 1.9 with no significant changes in his transaminases. Lipase is significantly elevated this morning at 8187. Patient is currently n.p.o. at this time. Abdomen is soft, nontender. ROS: Denies shortness of breath or chest pain Exam (Progress Note) - Constitutional Vitals: Period Temp Pulse Resp BP Sys/Liang Pulse Ox Last 24 Hr 96.6 F-97.7 F 81-104 12-20 124-205/67-95 96-100 General appearance: normal weight, no acute distress - Head Head exam: Present: normal inspection, normocephalic - Eye Eye exam: Present: other (Lids and conjunctivae are unremarkable). Absent: scleral icterus - ENT ENT exam: Present: normal exam, normal oropharynx - Neck Neck exam: Present: normal inspection - Respiratory Respiratory exam: Present: clear to auscultation bilaterally. Absent: rales, rhonchi, wheezes - Cardiovascular Cardiovascular exam: Present: regular rate and rhythm. Absent: diastolic murmur , JVD, systolic murmur - GI/Abdominal GI/Abdominal exam: Present: normal bowel sounds, soft. Absent: ascites, distended, mass, organomegaly, tenderness - Extremities Exam Extremities exam: Present: normal inspection, full ROM - Back Exam Back exam: Present: normal inspection - Neurological Exam Neurological exam: Present: alert, oriented X3 - Psychiatric Psychiatric exam: Present: normal affect, normal mood - Skin Skin exam: Present: normal color, warm, dry Results - Labs CBC & BMP: 06/30/17 05:38 06/30/17 05:38 Lab Results: I have reviewed the past 24 hour labs <Frank Ramirez - Last Filed: 06/30/17 18:27> Exam (Progress Note) - Constitutional Vitals: Period Temp Pulse Resp BP Sys/Liang Pulse Ox Last 24 Hr 96.6 F-97.7 F 88-94 18-20 129-145/67-84 94-100 Results - Labs CBC & BMP: 06/30/17 05:38 06/30/17 05:38
--- NOTE | 2017-06-30 11:00 | Hospitalist Progress Note ---
Hospitalist: Subjective Interval history: 62-year-old male who was admitted with biliary pancreatitis with elevated LFTs. Currently he denies abdominal pain and is quite calm and comfortable. Exam - Constitutional Vitals: Period Temp Pulse Resp BP Sys/Liang Pulse Ox Last 24 Hr 96.6 F-97.7 F 81-104 12-20 124-205/67-95 96-100 Exam: General: No Acute Distress HEENT: Normocephalic, atraumatic, Extra ocular movements intact Neck: Supple, No JVD Chest: Clear to auscultation B/L CV: S1 + S2 audible without murmur, gallop or rub Abd: soft, NT, Non-distended, BS + Ext: No edema Skin: No purpura, bruising or rash Rheumatologic: No Joint deformities Neurologic: No gross sensory deficits Results - Labs CBC & BMP: 06/30/17 05:38 06/30/17 05:38 - Impressions - Impressions Assessment and Plan (1) Acute biliary pancreatitis Status: Acute Current Visit: Yes The patient had a successful ERCP with stone removal and sphincterotomy yesterday. Advance diet slowly. 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
[2017-06-30] MEDS: LACOSAMIDE 50 MG TABLET PO SCH ×2 (12:13→22:36)
[2017-06-30] MEDS: URSODIOL 300 MG CAPSULE PO SCH ×2 (12:13→22:36)
[2017-06-30] MEDS: PANTOPRAZOLE 40 MG TABLET PO SCH (12:14)
[2017-06-30] MEDS: ALLOPURINOL 100 MG TABLET PO SCH (12:14)
[2017-06-30] MEDS: DIVALPROEX 500 MG TABLET PO SCH ×3 (12:14→22:36)
--- NOTE | 2017-06-30 14:19 | General Surgery Progress Note ---
Assessment and Plan (1) Biliary acute pancreatitis Status: Acute Assessment and plan: The patient had a successful ERCP with stone removal and sphincterotomy yesterday. His exam is difficult to sort out but his lipase did bump up significantly so I think we should keep him n.p.o. today and continue IV fluids and we will try to advance his diet tomorrow if his labs are improving. Current Visit: Yes Subjective Patient reports: Present: no new complaints, afebrile Exam - Constitutional Vitals: Period Temp Pulse Resp BP Sys/Liang Pulse Ox Last 24 Hr 96.6 F-97.7 F 86-94 15-20 125-145/67-84 96-100 General appearance: no acute distress, over weight - Head Head exam: Present: normal inspection, normocephalic - Eye Eye exam: Present: EOMI. Absent: scleral icterus Pupils: Present: NALDO - ENT ENT exam: Present: normal exam Mouth exam: Present: normal external inspection, normal voice - Neck Neck exam: Present: normal inspection, trachea midline - Respiratory Respiratory exam: Present: clear to auscultation bilaterally. Absent: accessory muscle use, chest wall tenderness - Cardiovascular Cardiovascular exam: Present: RRR. Absent: systolic murmur, tachycardia - GI/Abdominal GI/Abdominal exam: Present: soft. Absent: tenderness, rebound - Extremities Exam Extremities exam: Present: normal inspection, normal capillary refill - Back Exam Back exam: Present: normal inspection - Neurological Exam Neurological exam: Present: alert Speech: Present: normal - Skin Skin exam: Present: normal color, warm Results - Labs CBC & BMP: 06/30/17 05:38 06/30/17 05:38
[2017-06-30] MEDS: LACTATED RINGERS 1,000 ML IV SCH (16:41)
[2017-06-30] MEDS: INSULIN GLARGINE 100 UNIT/ML SUBCUT SCH (22:15)
[2017-07-01] MEDS: LACTATED RINGERS 1,000 ML IV SCH ×3 (01:02→16:10)
[2017-07-01] MEDS: PHENYTOIN ER 100 MG CAPSULE PO SCH ×3 (05:55→21:49)
--- NOTE | 2017-07-01 09:16 | Gastrointestinal Progress Note ---
<FrancyGabrielle Luz - Last Filed: 07/01/17 09:13> Assessment and Plan (1) Abdominal pain Status: Acute Assessment and plan: 07/01-complaints of abdominal pain. Lipase trending down to 2235. Could slowly start to increase diet as tolerated today. Plan an addendum to follow by Dr. Ramirez 06/30-no complaints of abdominal pain. ERCP findings noted as below. Lipase elevated today. Continue n.p.o. at present time. Recheck lipase levels tomorrow. Plan an addendum to follow by Dr. Ramirez. 06/28-initial reports of abdominal pain prior to admission with findings on exam of elevated LFTs and lipase as well as imaging findings of dilated common bile duct and questionable cholecystitis and cholelithiasis. Surgery consult noted with recommendations for possible ERCP, patient nonsurgical. Noted that Actigall has been initiated. Plan an addendum to follow by Dr. Ramirez. Current Visit: Yes Gastroenterology - PN: Subj Interval history: CC: Abdominal pain Patient is seen, awake and alert. He denies any abdominal pain nausea or vomiting at this time. He remains n.p.o. due to his elevated lipase levels however these have trended down today to 2235. Abdomen is soft, nontender. No repeat LFTs noted today. ROS: Denies shortness of breath or chest pain Exam (Progress Note) - Constitutional Vitals: Period Temp Pulse Resp BP Sys/Liang Pulse Ox Last 24 Hr 97.0 F-97.6 F 80-91 18-20 124-152/63-73 94-99 General appearance: normal weight, no acute distress - Head Head exam: Present: normal inspection, normocephalic - Eye Eye exam: Present: other (Lids and conjunctivae are unremarkable). Absent: scleral icterus - ENT ENT exam: Present: normal exam, normal oropharynx - Neck Neck exam: Present: normal inspection - Respiratory Respiratory exam: Present: clear to auscultation bilaterally. Absent: rales, rhonchi, wheezes - Cardiovascular Cardiovascular exam: Present: regular rate and rhythm. Absent: diastolic murmur , JVD, systolic murmur - GI/Abdominal GI/Abdominal exam: Present: normal bowel sounds, soft. Absent: ascites, distended, mass, organomegaly, tenderness - Extremities Exam Extremities exam: Present: normal inspection, full ROM - Back Exam Back exam: Present: normal inspection - Neurological Exam Neurological exam: Present: alert, oriented X3 - Psychiatric Psychiatric exam: Present: normal affect, normal mood - Skin Skin exam: Present: normal color, warm, dry Results - Labs CBC & BMP: 06/30/17 05:38 06/30/17 05:38 Lab Results: I have reviewed the past 24 hour labs <Frank Ramirez - Last Filed: 07/01/17 16:28> Exam (Progress Note) - Constitutional Vitals: Period Temp Pulse Resp BP Sys/Liang Pulse Ox Last 24 Hr 97.1 F-97.6 F 80-104 18-20 124-152/63-79 95-99 Results - Labs CBC & BMP: 06/30/17 05:38 07/01/17 05:17
[2017-07-01] MEDS: INSULIN REGULAR 100 UNIT/ML SUBCUT SCH ×2 (09:29→17:31)
[2017-07-01] MEDS: PANTOPRAZOLE 40 MG TABLET PO SCH (09:29)
[2017-07-01] MEDS: LACOSAMIDE 50 MG TABLET PO SCH ×2 (09:29→21:53)
[2017-07-01] MEDS: URSODIOL 300 MG CAPSULE PO SCH ×2 (09:29→21:49)
[2017-07-01] MEDS: DIVALPROEX 500 MG TABLET PO SCH ×3 (09:29→21:49)
[2017-07-01] MEDS: ALLOPURINOL 100 MG TABLET PO SCH (09:29)
--- NOTE | 2017-07-01 10:19 | General Surgery Progress Note ---
Assessment and Plan (1) Biliary acute pancreatitis Status: Acute Assessment and plan: The patient's lipase is down today to 1999. He says that he is tolerating a diet but is still n.p.o. in the computer. I think since he does not have an impressive abdominal exam and his lipase is improving but it would be okay to give him liquids today and just see how he does with this. I tried to explain to him in detail his condition and the reason that we are not pursuing cholecystectomy at this time but I am not completely sure that he grasps the information completely. Again as long as he improves during this admission and there are no further episodes to make us think that he is having symptomatic disease in his gallbladder I think the best treatment would be nonoperative at this time. If he does develop recurrent episodes even after sphincterotomy then we can revisit the possibility of cholecystectomy but this would likely need to be done at a facility with neurosurgery available in case there are issues with his TREE CLIMBER shunt which sits right near his gallbladder fossa. I will continue to follow him while he is here but if he discharges home I will plan to see him back in clinic in about a month see how he is doing at that time. He needs to continue his Actigall after discharge per Current Visit: Yes Subjective Patient reports: Present: no new complaints, tolerating a regular diet, afebrile Exam - Constitutional Vitals: Period Temp Pulse Resp BP Sys/Liang Pulse Ox Last 24 Hr 97.0 F-97.6 F 80-91 18-20 124-152/63-73 94-99 General appearance: no acute distress, over weight - Head Head exam: Present: normal inspection, normocephalic - Eye Eye exam: Present: EOMI. Absent: conjunctival injection Pupils: Present: NALDO - ENT ENT exam: Present: normal exam Mouth exam: Present: normal external inspection, normal voice - Neck Neck exam: Present: normal inspection, trachea midline - Respiratory Respiratory exam: Present: clear to auscultation bilaterally. Absent: accessory muscle use, chest wall tenderness - Cardiovascular Cardiovascular exam: Present: RRR. Absent: systolic murmur, tachycardia - GI/Abdominal GI/Abdominal exam: Present: normal bowel sounds, soft - Extremities Exam Extremities exam: Present: normal inspection, normal capillary refill - Back Exam Back exam: Present: normal inspection - Neurological Exam Neurological exam: Present: alert, oriented X3 Speech: Present: normal - Skin Skin exam: Present: normal color, warm Results - Labs CBC & BMP: 06/30/17 05:38 06/30/17 05:38
[2017-07-01 11:56] LABS: Albumin 2.8 G/DL (3.4-5.0); Bilirubin,Total 1.2 MG/DL (0.2-1.0); Calcium 9.1 MG/DL (8.5-10.1); Osmolality,Calculated 288.3 MOS/KG (273-304); Potassium 4.1 MMOL/L (3.5-5.1); Total Protein 6.8 G/DL (6.4-8.3)
--- NOTE | 2017-07-01 18:16 | Hospitalist Progress Note ---
Hospitalist: Subjective Interval history: No abdominal pain today Exam - Constitutional Vitals: Period Temp Pulse Resp BP Sys/Liang Pulse Ox Last 24 Hr 97.1 F-97.6 F 80-104 18-20 124-152/63-79 95-100 Exam: General: No Acute Distress HEENT: Normocephalic, atraumatic, Extra ocular movements intact Neck: Supple, No JVD Chest: Clear to auscultation B/L CV: S1 + S2 audible without murmur, gallop or rub Abd: soft, NT, Non-distended, BS + Ext: No edema Skin: No purpura, bruising or rash Rheumatologic: No Joint deformities Neurologic: No gross sensory deficits Results - Labs CBC & BMP: 06/30/17 05:38 07/01/17 05:17 - Impressions Assessment and Plan (1) Acute biliary pancreatitis Status: Acute Current Visit: Yes The patient had a successful ERCP with stone removal and sphincterotomy 06/30.. Advance diet slowly. 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
[2017-07-01] MEDS: INSULIN GLARGINE 100 UNIT/ML SUBCUT SCH (21:49)
[2017-07-02 06:25] LABS: Albumin 2.6 G/DL (3.4-5.0); Bilirubin,Total 1.6 MG/DL (0.2-1.0); Calcium 9.2 MG/DL (8.5-10.1); Osmolality,Calculated 284.3 MOS/KG (273-304); Total Protein 6.2 G/DL (6.4-8.3)
[2017-07-02] MEDS: LACTATED RINGERS 1,000 ML IV SCH ×4 (06:31→21:43)
[2017-07-02] MEDS: PHENYTOIN ER 100 MG CAPSULE PO SCH ×3 (06:31→21:42)
[2017-07-02] MEDS: URSODIOL 300 MG CAPSULE PO SCH ×2 (09:02→20:30)
[2017-07-02] MEDS: DIVALPROEX 500 MG TABLET PO SCH ×3 (09:02→20:30)
[2017-07-02] MEDS: PANTOPRAZOLE 40 MG TABLET PO SCH (09:02)
[2017-07-02] MEDS: ALLOPURINOL 100 MG TABLET PO SCH (09:02)
[2017-07-02] MEDS: LACOSAMIDE 50 MG TABLET PO SCH ×2 (09:02→20:30)
[2017-07-02] MEDS: INSULIN REGULAR 100 UNIT/ML SUBCUT SCH ×2 (09:03→17:02)
--- NOTE | 2017-07-02 10:23 | General Surgery Progress Note ---
Assessment and Plan (1) Biliary acute pancreatitis Status: Acute Assessment and plan: Impression: Biliary pancreatitis Plan: Status post ERCP. Pain has resolved. His lipase is improved. Bilirubin 1.5 today. Advance diet as tolerated and recheck LFTs tomorrow. Current Visit: Yes Subjective Patient reports: Present: no new complaints, feels better Narrative: Patient says he has no pain and feels better. He has been tolerating his diet. Afebrile vital signs stable. Exam - Constitutional Vitals: Period Temp Pulse Resp BP Sys/Liang Pulse Ox Last 24 Hr 96.6 F-97.6 F 76-104 16-20 126-137/64-79 95-100 General appearance: no acute distress - Head Head exam: Present: normocephalic - Respiratory Respiratory exam: Present: clear to auscultation bilaterally - Cardiovascular Cardiovascular exam: Present: RRR - GI/Abdominal GI/Abdominal exam: Present: normal bowel sounds, soft (Nontender nondistended) - Neurological Exam Neurological exam: Present: alert Speech: Present: abnormal (Difficult to understand) - Skin Skin exam: Present: normal color Results - Labs CBC & BMP: 06/30/17 05:38 07/02/17 05:06 Lab Results: I have reviewed the past 24 hour labs
--- NOTE | 2017-07-02 14:01 | Hospitalist Progress Note ---
Hospitalist: Subjective Interval history: Patient denies any abdominal pain today. Exam - Constitutional Vitals: Period Temp Pulse Resp BP Sys/Liang Pulse Ox Last 24 Hr 96.6 F-98.9 F 76-89 16-18 127-137/63-74 98-100 Exam: General: No Acute Distress HEENT: Normocephalic, atraumatic, Extra ocular movements intact Neck: Supple, No JVD Chest: Clear to auscultation B/L CV: S1 + S2 audible without murmur, gallop or rub Abd: soft, NT, Non-distended, BS + Ext: No edema Skin: No purpura, bruising or rash Rheumatologic: No Joint deformities Neurologic: No gross sensory deficits Results - Labs CBC & BMP: 06/30/17 05:38 07/02/17 05:06 - Impressions Assessment and Plan (1) Acute biliary pancreatitis Status: Acute Current Visit: Yes The patient had a successful ERCP with stone removal and sphincterotomy 06/30. 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
[2017-07-02] MEDS: INSULIN GLARGINE 100 UNIT/ML SUBCUT SCH (20:30)
[2017-07-03] MEDS: PHENYTOIN ER 100 MG CAPSULE PO SCH (05:42)
[2017-07-03] MEDS: LACTATED RINGERS 1,000 ML IV SCH ×4 (05:43→22:29)
[2017-07-03 05:50] LABS: Albumin 2.6 G/DL (3.4-5.0); Bilirubin,Direct 0.8 MG/DL (0.0-0.20); Bilirubin,Indirect 0.4 MG/DL (0.0-1.0); Bilirubin,Total 1.2 MG/DL (0.2-1.0); Total Protein 6.2 G/DL (6.4-8.3)
[2017-07-03] MEDS ORDERED: LORazepam 2 MG/1 ML VIAL IV PRN (09:13)
[2017-07-03] MEDS: URSODIOL 300 MG CAPSULE PO SCH ×2 (09:16→20:40)
[2017-07-03] MEDS: DIVALPROEX 500 MG TABLET PO SCH (09:16)
[2017-07-03] MEDS: LACOSAMIDE 50 MG TABLET PO SCH (09:16)
[2017-07-03] MEDS: PANTOPRAZOLE 40 MG TABLET PO SCH (09:16)
[2017-07-03] MEDS: ALLOPURINOL 100 MG TABLET PO SCH (09:16)
[2017-07-03] MEDS: INSULIN REGULAR 100 UNIT/ML SUBCUT SCH ×2 (09:22→17:22)
--- NOTE | 2017-07-03 10:42 | Hospitalist Progress Note ---
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 . He is Status post ERCP. He was not an ideal surgical candidate. He has a history of known seizure disorder and on several seizure medications. This morning he had a generalized tonic-clonic seizure seizure witnessed by the nursing staff lasting about 15 seconds resolved spontaneously. He had another one that resolved with IV Ativan. Subsequently he was switched to IV seizure medication and neurology has been consulted Exam - Constitutional Vitals: Period Temp Pulse Resp BP Sys/Liang Pulse Ox Last 24 Hr 97.1 F-98.9 F 68-90 16-20 125-162/63-85 97-100 Exam: General: No Acute Distress HEENT: Normocephalic, atraumatic, Extra ocular movements intact Neck: Supple, No JVD Chest: Clear to auscultation B/L CV: S1 + S2 audible without murmur, gallop or rub Abd: soft, NT, Non-distended, BS + Ext: No edema Skin: No purpura, bruising or rash Rheumatologic: No Joint deformities Neurologic: No gross sensory deficits Results - Labs CBC & BMP: 07/03/17 12:12 07/03/17 04:29 - Impressions Assessment and Plan (1) Acute biliary pancreatitis Status: Acute Current Visit: Yes The patient had a successful ERCP with stone removal and sphincterotomy 06/30. 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
[2017-07-03 10:53] LABS: Calcium 8.9 MG/DL (8.5-10.1); Magnesium 1.5 MG/DL (1.8-2.4); Osmolality,Calculated 281.4 MOS/KG (273-304); Potassium 4.2 MMOL/L (3.5-5.1)
--- NOTE | 2017-07-03 11:16 | General Surgery Progress Note ---
Assessment and Plan (1) Biliary acute pancreatitis Status: Acute Assessment and plan: Impression: Biliary pancreatitis Plan: Status post ERCP. Pain has resolved. His lipase is improved. Bilirubin 1.5 today. Advance diet as tolerated and recheck LFTs tomorrow. Current Visit: Yes Subjective Narrative: Patient had a seizure overnight. Since then he is being given Ativan is somewhat somnolent and has not been eating. A status post ERCP and his bilirubin is trending down. He was examined but never really woke up I did not elicit any significant tenderness. He has medical problems that will now have to be addressed but as far as his surgical issues things seem to be improving. Exam - Constitutional Vitals: Period Temp Pulse Resp BP Sys/Liang Pulse Ox Last 24 Hr 97.1 F-98.9 F 68-90 16-20 125-162/63-85 97-100 Results - Labs CBC & BMP: 06/30/17 05:38 07/03/17 04:29
--- NOTE | 2017-07-03 11:41 | XRay Report ---
History: Seizure. Evaluate for aspiration Date: 07/03/2017 Study: Chest x-ray AP portable Comparison exam: October 04, 2014 chest x-ray There is stable mild cardiomegaly. The mediastinal contours are unchanged. The pulmonary vasculature is not engorged. Ventriculoperitoneal shunt tubing overlies the right chest. There is some minor strandy subsegmental atelectasis or scarring in the right lung base. The lungs and pleural spaces are otherwise generally clear. Osseous structures are similar. There is mild thoracic spondylosis. Impression: Mild strandy scar or subsegmental atelectasis right lung base. Otherwise unchanged PROCEDURE INTERPRETED AT [facility] DEPARTMENT OF RADIOLOGY Final Report Signed by: Dr. Holly Green
[2017-07-03] MEDS ORDERED: LACOSAMIDE INJ 100 MG in SODIUM CHLORIDE 0.9% 50 ML IV SCH (12:00)
--- NOTE | 2017-07-03 12:04 | CT Report ---
History: Seizure Date: 07/03/2017 Study: CT head without contrast Comparison exam: October 07, [address] sections were obtained through the head without IV contrast. Total DLP measures 2273.2 mGy*cm. This CT exam was performed using one or more the following dose reduction techniques: Automated exposure control, adjustment of the MA and/or KV according to patient size, or use of iterative reconstruction technique. A right parietal ventricular shunt is positioned with its tip in the temporal horn of the left lateral ventricle. The ventricles are midline in position. There is no interval change in the size of the ventricles compared to the previous study. There is thought to be an element of cerebral atrophy present with associated ventricular enlargement. There is asymmetric enlargement of the left frontal horn and left temporal horn related to chronic ischemia or encephalomalacia in these areas as before. There is no new mass or parenchymal hemorrhage. There is no gross CT evidence of acute cortical stroke. There is no extra-axial hematoma. There is chronic right sphenoid sinusitis with complete opacification of the right sphenoid sinus and some sclerosis of the sinus louis. The sinuses are otherwise generally clear. Impression: No adverse interval change compared to the previous study. Stable appearance of the ventricles in this patient with a right parietal ventricular shunt. Previous chronic ischemia or encephalomalacia left frontal and temporal lobes as before. Chronic right sphenoid sinusitis PROCEDURE INTERPRETED AT [facility] DEPARTMENT OF RADIOLOGY Final Report Signed by: Dr. Holly Green
[2017-07-03 12:38] LABS: Basophils % 0.5 % (0.0-0.8); Eosinophils # 0.3 10*3/uL (0.0-0.87); Eosinophils % 3.6 % (0.00-10.9); Hematocrit 29.9 VOL% (42.0-52.0); Immature Granulocytes % 1.9 %; Immature Granulocytes Absolute 0.15 #; Lymphocytes # 0.9 10*3/uL (1.4-4.0); Lymphocytes % 11.5 % (21.2-54.2); Mean Corpuscular HGB Conc 33.4 GM/DL (32-36); Mean Corpuscular Hemoglobin 27 PG (27-34); Mean Corpuscular Volume 81.9 FL (87-102); Mean Platelet Volume 10.1 FL (9.6-12.0); Monocytes # 0.9 10*3/uL (0.11-0.8); Monocytes % 10.7 % (1.7-12.7); Neutrophils # 5.8 10*3/uL (1.4-7.4); Neutrophils % 71.8 % (38.7-73.9); Platelet Count 197 T/CUMM (130-400); Red Blood Count 3.65 MC/CUMM (3.8-5.5); Red Cell Distribution Width 15.3 % (9.3-17.3)
[2017-07-03] MEDS ORDERED: VALPROIC ACID INJ 1,000 MG in SODIUM CHLORIDE 0.9% 100 ML IV SCH (13:00)
[2017-07-03] MEDS: LACOSAMIDE INJ 150 MG in SODIUM CHLORIDE 0.9% 50 ML IV SCH ×2 (13:28→20:40)
[2017-07-03] MEDS: PHENYTOIN 100 MG/2 ML VIAL IV SCH ×2 (14:32→21:01)
[2017-07-03] MEDS: VALPROIC ACID INJ 500 MG in SODIUM CHLORIDE 0.9% 100 ML IV SCH ×2 (14:33→22:29)
[2017-07-03] MEDS ORDERED: MAGNESIUM SULF RIDER 2 GM in PREMIX 1 EACH IV ONE (16:55)
[2017-07-03] MEDS: INSULIN GLARGINE 100 UNIT/ML SUBCUT SCH (20:40)
[2017-07-04] MEDS: PHENYTOIN 100 MG/2 ML VIAL IV SCH ×3 (05:54→21:52)
[2017-07-04] MEDS: LACTATED RINGERS 1,000 ML IV SCH ×2 (05:54→17:19)
[2017-07-04] MEDS: VALPROIC ACID INJ 500 MG in SODIUM CHLORIDE 0.9% 100 ML IV SCH ×3 (05:54→22:34)
[2017-07-04 06:30] LABS: Phenytoin (Dilantin) 3.6 UG/ML (10-20)
[2017-07-04 06:42] LABS: Albumin 2.6 G/DL (3.4-5.0); Bilirubin,Direct 0.7 MG/DL (0.0-0.20); Bilirubin,Indirect 0.7 MG/DL (0.0-1.0); Bilirubin,Total 1.4 MG/DL (0.2-1.0); Calcium 8.8 MG/DL (8.5-10.1); Osmolality,Calculated 275.4 MOS/KG (273-304); Potassium 4.1 MMOL/L (3.5-5.1); Total Protein 6.3 G/DL (6.4-8.3)
--- NOTE | 2017-07-04 07:47 | General Surgery Progress Note ---
Assessment and Plan (1) Biliary acute pancreatitis Status: Acute Assessment and plan: Bilirubin has not normalized yet, but lipase trended down nicely and patient is tolerating diet with no nausea or vomiting. I do not believe that there is anything indicating that the gallbladder needs to be removed or drained right now, especially since the cystic duct was patent on ERCP (although this was under pressure). I would recommend continuing actigall treatment and following him clinically for now. If he continues to have neurologic problems he may need to be transferred to a center with neurosurgical coverage to interrogate his AIRPLANE FIRST OFFICER shunt. I will continue to follow him while he is here. Current Visit: Yes Subjective Patient reports: Present: no new complaints, afebrile Narrative: The patient had a seizure over the weekend. CT head with no change in ventricle size. Back to baseline today. Reports no pain, and states that he is eating well. Bilirubin is 1.5 today. Exam - Constitutional Vitals: Period Temp Pulse Resp BP Sys/Liang Pulse Ox Last 24 Hr 96.7 F-98.6 F 64-90 16-22 125-162/60-81 95-100 General appearance: no acute distress, over weight - Head Head exam: Present: normal inspection, normocephalic - Eye Eye exam: Present: EOMI Pupils: Present: NALDO - ENT ENT exam: Present: normal exam Mouth exam: Present: normal external inspection - Neck Neck exam: Present: normal inspection, trachea midline - Respiratory Respiratory exam: Present: clear to auscultation bilaterally. Absent: accessory muscle use, chest wall tenderness - Cardiovascular Cardiovascular exam: Present: RRR. Absent: systolic murmur, tachycardia - GI/Abdominal GI/Abdominal exam: Present: normal bowel sounds, soft. Absent: distended, tenderness, rebound - Extremities Exam Extremities exam: Present: normal inspection, normal capillary refill - Back Exam Back exam: Present: normal inspection - Neurological Exam Neurological exam: Present: alert Speech: Present: normal - Skin Skin exam: Present: normal color, warm Results - Labs CBC & BMP: 07/03/17 12:12 07/04/17 05:21
[2017-07-04] MEDS: INSULIN REGULAR 100 UNIT/ML SUBCUT SCH ×2 (08:14→17:13)
[2017-07-04] MEDS: LACOSAMIDE INJ 150 MG in SODIUM CHLORIDE 0.9% 50 ML IV SCH ×2 (10:01→23:28)
[2017-07-04] MEDS: PANTOPRAZOLE 40 MG TABLET PO SCH (10:02)
[2017-07-04] MEDS: URSODIOL 300 MG CAPSULE PO SCH ×2 (10:02→21:51)
[2017-07-04] MEDS: ALLOPURINOL 100 MG TABLET PO SCH (10:02)
--- NOTE | 2017-07-04 15:21 | Neurology Consult Note ---
History of Present Illness History of present illness: Mr. Thomas is a 62 year old right-handed -[place]ron[place] gentleman who was admitted to the hospital with complaints of abdominal pain. Patient is a very poor historian and unable to contribute to historical information. Patient is known to me. Information is obtained from chart review this time. Patiently reported began "not feeling well" at the [facility], where he is a permanent resident, and was brought to the hospital for further evaluation. Patient has a prior history of diabetes, DATABASE MARKETING SPECIALIST shunt, developmental delay, seizure disorder. His seizure has been under good control on current AEDs. With further workup he was found to have gallstones and pancreatitis. Workup is in progress. He will require ERCP. on 05/17/2017 he had 2 [id number] generalized tonic-clonic seizures. All the medications were switched over to IV which has helped him significantly. No more seizures reported since yesterday. He is alert awake and oriented. Seems to be doing well. Moving all 4 extremities. His Dilantin level is subtherapeutic at 3.6 Home Medications Medication Instructions Recorded Confirmed Type Cholecalciferol (Vitamin D3) 2,000 unit PO DAILY 11/22/16 06/30/17 History [Vitamin D3] Ferrous Sulfate 325 mg PO DAILY 11/22/16 06/30/17 History Folic Acid Tab 1 mg PO DAILY 11/22/16 06/30/17 History Insulin Detemir [Levemir] 25 unit SUBCUT BID 11/22/16 06/30/17 History Lacosamide Tab [Vimpat Tab] 100 mg PO Q12H 11/22/16 06/30/17 History Multivitamin [Multivitamins] 1 each PO DAILY 11/22/16 06/30/17 History Phenytoin ER Cap [Dilantin Cap] 100 mg PO Q8H 11/22/16 06/30/17 History Valproic Acid 500 mg PO Q8H 11/22/16 06/30/17 History Alum/Mag/Simeth Liquid [Mylanta 30 ml PO Q4H PRN 02/09/17 06/30/17 History Liquid] Insulin Regular, Human [NovoLIN R] 0 - 14 units SUBCUT BID 02/09/17 06/30/17 History Allergies Allergy/AdvReac Type Severity Reaction Status Date / Time No Known Allergies Allergy Verified 02/09/17 13:52 12 point system: reviewed and no additional remarkable complaints except as stated Medical,Surgical,& Family Hx - Medical History Neurology: History of: Seizures (po medication administered this am) Endocrine: History of: Diabetes Mellitus (NIDDM) - Surgical History Neurologic Surgeries: Surgical HX of: Neurologic Surgery (Ventriculoperitoneal shunt) Abdominal Surgeries: Surgical HX of: Abdominal Surgery (Colostomy) - Social History Smoking Status: Never smoker Frequency of Alcohol Use: None Type of Drug Use: None Exam - Constitutional Vitals: Period Temp Pulse Resp BP Sys/Liang Pulse Ox Last 24 Hr 96.7 F-98.6 F 64-82 16-22 115-144/60-75 98-99 Exam: GENERAL: Patient is in no acute distress. NECK: Neck is supple. There is no JVD. No carotid bruits present. No thyroid masses. CVS: First and second heart sounds are normal. There is no S3 present. Regular rate and rhythm. RESPIRATORY: Lungs are clear to auscultation without any rales or rhonchi. ABDOMEN: Soft and non-tender. Bowel sounds are present. There is no hepatosplenomegaly. EXT: There is no palpable edema. Peripheral pulses are present. Skin: No rashes Central Nervous system: General: Alert, awake Speech: Fluent Comprehension: Fair Facial expressions: Normal Cranial Nerves: CN1/Olfactory: Normal CN II/ Optic: Normal, Visual Ribeiro unreliable CN III, and : NALDO & EOMI CN V: Normal & intact CN VII: face is symmetric CNVIII: Normal CN XI/X/XI/XII: Intact and Normal Motor: Bulk and Tone is normal. Strength symmetrical and weak Sensory: Unreliable Reflexes: 1+ and symmetrical Cerebellar function: Slow finger to nose and heel to catalan testing. Toes: Equivocal Gait: Not tested. He does not walk Results - Labs CBC & BMP: 07/03/17 12:12 07/04/17 05:21 Assessment and Plan (1) Breakthrough seizure Status: Acute Assessment and plan: Continue Dilantin, Vimpat and Depakote IV at the same dose However we will give him Dilantin 500 mg IV extra dose We will watch him closely We will switch him over to p.o. once okay from GI standpoint. Thank you for the consult Current Visit: Yes
[2017-07-04] MEDS ORDERED: PHENYTOIN INJ 500 MG in SODIUM CHLORIDE 0.9% 100 ML IV ONE (15:25)
--- NOTE | 2017-07-04 16:37 | Hospitalist Progress Note ---
Assessment and Plan (1) Abdominal pain Status: Acute Assessment and plan: The patient has less abdominal pain now. He seems to be improving on nonoperative conservative management. We will continue with antiseizure medications as ordered by Dr. Jannette Felix. 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 He is not having as much abdominal discomfort as he was last week. The patient did have some seizure yesterday and is now on 3 drugs. A Dilantin extra bolus was given today. Dr. Jannette Felix is ordering anti-seizure medications. Exam - Constitutional Vitals: Period Temp Pulse Resp BP Sys/Liang Pulse Ox Last 24 Hr 96.7 F-98.6 F 64-82 16-22 115-144/60-75 98-99 General appearance: no acute distress - Respiratory Respiratory exam: Present: clear to auscultation bilaterally - Cardiovascular Cardiovascular exam: Present: regular rate and rhythm - GI/Abdominal GI/Abdominal exam: Present: normal bowel sounds Results - Labs CBC & BMP: 07/03/17 12:12 07/04/17 05:21 Lab Results: I have reviewed the past 24 hour labs
[2017-07-04] MEDS: INSULIN GLARGINE 100 UNIT/ML SUBCUT SCH (21:52)
[2017-07-05] MEDS: LACTATED RINGERS 1,000 ML IV SCH ×3 (01:42→14:27)
[2017-07-05] MEDS: PHENYTOIN 100 MG/2 ML VIAL IV SCH ×2 (05:44→13:22)
[2017-07-05] MEDS: VALPROIC ACID INJ 500 MG in SODIUM CHLORIDE 0.9% 100 ML IV SCH ×2 (05:45→14:39)
[2017-07-05 07:35] LABS: Apearance,Urine CLEAR (Clear); Bilirubin,Urine Negative (Negative); Blood, Urine Moderate mg/dL (Negative); Glucose,Urine (UA) Negative (Negative); Ketones,Urine Negative (Negative); Nitrite,Urine Negative (Negative); Protein,Urine Negative; RBC,Urine <1 /HPF (0-4); Urine Color Yellow (Yellow); Urine Specific Gravity 1.004 (1.001-1.035); Urine Urobilinogen < 2.0 EU/DL (0.2-1.0)
[2017-07-05] MEDS: INSULIN REGULAR 100 UNIT/ML SUBCUT SCH ×2 (08:32→17:17)
[2017-07-05] MEDS: ALLOPURINOL 100 MG TABLET PO SCH (08:33)
[2017-07-05] MEDS: URSODIOL 300 MG CAPSULE PO SCH ×2 (08:33→21:39)
[2017-07-05] MEDS: PANTOPRAZOLE 40 MG TABLET PO SCH (08:33)
--- NOTE | 2017-07-05 09:24 | General Surgery Progress Note ---
Assessment and Plan (1) Biliary acute pancreatitis Status: Acute Assessment and plan: The patient looks excellent today. He is tolerating breakfast when I examined him. He has no abdominal tenderness. His bilirubin has not normalized yet but I believe we can follow this as an outpatient and from my standpoint he can be discharged home once his medical and neurologic issues have been stabilized. I will continue to follow the patient peripherally while he is in the hospital. Current Visit: Yes Subjective Patient reports: Present: no new complaints, tolerating a regular diet, afebrile. Absent: nausea, vomiting Exam - Constitutional Vitals: Period Temp Pulse Resp BP Sys/Liang Pulse Ox Last 24 Hr 97.0 F-98.4 F 73-82 16-20 115-149/62-73 98-100 General appearance: no acute distress, over weight - Head Head exam: Present: normal inspection, normocephalic - Eye Eye exam: Present: EOMI. Absent: scleral icterus Pupils: Present: NALDO - ENT ENT exam: Present: normal exam Mouth exam: Present: normal external inspection, normal voice - Neck Neck exam: Present: normal inspection, trachea midline - Respiratory Respiratory exam: Present: clear to auscultation bilaterally. Absent: accessory muscle use, chest wall tenderness - Cardiovascular Cardiovascular exam: Present: RRR. Absent: systolic murmur, tachycardia - GI/Abdominal GI/Abdominal exam: Present: normal bowel sounds, soft. Absent: distended, tenderness, rebound - Extremities Exam Extremities exam: Present: normal inspection, normal capillary refill - Back Exam Back exam: Present: normal inspection - Neurological Exam Neurological exam: Present: alert Speech: Present: normal - Skin Skin exam: Present: normal color, warm Results - Labs CBC & BMP: 07/03/17 12:12 07/04/17 05:21 Specialty Discharge - Follow Up or Referrals Follow up with: Stuart Chacon MD [Emergency Provider] - 2 Weeks (follow-up in 2 weeks with LFTs and lipase)
[2017-07-05] MEDS: LACOSAMIDE INJ 150 MG in SODIUM CHLORIDE 0.9% 50 ML IV SCH (10:01)
--- NOTE | 2017-07-05 14:14 | Hospitalist Progress Note ---
Assessment and Plan (1) Abdominal pain Status: Acute Assessment and plan: The patient has less abdominal pain now. He seems to be improving on nonoperative conservative management. We will continue with antiseizure medications and change Dilantin as well as Depakote to oral form. He continues on IV Vimpat. 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 He is enjoying full liquid diet. The patient does not complain of abdominal pain fever or nausea. He has not had any further seizure activity. Exam - Constitutional Vitals: Period Temp Pulse Resp BP Sys/Liang Pulse Ox Last 24 Hr 97.0 F-98.4 F 73-83 16-18 119-149/62-78 99-100 General appearance: no acute distress - Respiratory Respiratory exam: Present: clear to auscultation bilaterally - Cardiovascular Cardiovascular exam: Present: regular rate and rhythm - GI/Abdominal GI/Abdominal exam: Present: normal bowel sounds Results - Labs CBC & BMP: 07/03/17 12:12 07/04/17 05:21 Lab Results: I have reviewed the past 24 hour labs Specialty Discharge - Follow Up or Referrals Follow up with: Stuart Chacon MD [Emergency Provider] - 07/14/17 9:30 am (follow-up in 2 weeks with LFTs and lipase. lab work to be drawn at [facility] on at 8:00)
[2017-07-05] MEDS: DIVALPROEX 500 MG TABLET PO SCH ×2 (14:31→21:40)
[2017-07-05] MEDS: PHENYTOIN ER 100 MG CAPSULE PO SCH ×2 (14:38→21:40)
--- NOTE | 2017-07-05 15:39 | Neurology Progress Note ---
Neurology - PN : Subjective Interval history: Stable neurologically. No more seizures reported. Eating better. Tolerating food well Exam (Progress Note) - Constitutional Vitals: Period Temp Pulse Resp BP Sys/Liang Pulse Ox Last 24 Hr 97.0 F-98.4 F 73-83 16-18 119-149/62-78 99-100 Exam: GENERAL: Patient is in no acute distress. NECK: Neck is supple. There is no JVD. No carotid bruits present. No thyroid masses. CVS: First and second heart sounds are normal. There is no S3 present. Regular rate and rhythm. RESPIRATORY: Lungs are clear to auscultation without any rales or rhonchi. ABDOMEN: Soft and non-tender. Bowel sounds are present. There is no hepatosplenomegaly. EXT: There is no palpable edema. Peripheral pulses are present. Skin: No rashes Central Nervous system: General: Alert, awake Speech: Fluent Comprehension: Fair Facial expressions: Normal Cranial Nerves: CN1/Olfactory: Normal CN II/ Optic: Normal, Visual Ribeiro unreliable CN III, and : NALDO & EOMI CN V: Normal & intact CN VII: face is symmetric CNVIII: Normal CN XI/X/XI/XII: Intact and Normal Motor: Bulk and Tone is normal. Strength symmetrical and weak Sensory: Unreliable Reflexes: 1+ and symmetrical Cerebellar function: Slow finger to nose and heel to catalan testing. Toes: Equivocal Gait: Not tested. He does not walk Results - Labs CBC & BMP: 07/03/17 12:12 07/04/17 05:21 Assessment and Plan (1) Breakthrough seizure Status: Acute Assessment and plan: Agree to change AED meds to p.o. Check Dilantin and Depakote level in the morning Current Visit: Yes Specialty Discharge - Follow Up or Referrals Follow up with: Stuart Chacon MD [Emergency Provider] - 07/14/17 9:30 am (follow-up in 2 weeks with LFTs and lipase. lab work to be drawn at [facility] on at 8:00)
[2017-07-05] MEDS: INSULIN GLARGINE 100 UNIT/ML SUBCUT SCH (21:40)
[2017-07-05] MEDS: LACOSAMIDE 50 MG TABLET PO SCH (21:40)
[2017-07-06] MEDS: LACTATED RINGERS 1,000 ML IV SCH ×3 (00:44→15:48)
[2017-07-06 06:50] LABS: Basophils % 0.5 % (0.0-0.8); Eosinophils # 0.3 10*3/uL (0.0-0.87); Eosinophils % 3.8 % (0.00-10.9); Hematocrit 25.7 VOL% (42.0-52.0); Hemoglobin 8.7 GM/DL (14.0-18.0); Immature Granulocytes % 2.1 %; Immature Granulocytes Absolute 0.18 #; Lymphocytes # 1.9 10*3/uL (1.4-4.0); Lymphocytes % 21.7 % (21.2-54.2); Mean Corpuscular HGB Conc 33.9 GM/DL (32-36); Mean Corpuscular Hemoglobin 28 PG (27-34); Mean Corpuscular Volume 81.3 FL (87-102); Mean Platelet Volume 9.9 FL (9.6-12.0); NRBC # 0.02 10*3/uL; Neutrophils # 5.3 10*3/uL (1.4-7.4); Neutrophils % 60.9 % (38.7-73.9); Platelet Count 186 T/CUMM (130-400); Red Blood Count 3.16 MC/CUMM (3.8-5.5); Red Cell Distribution Width 15.2 % (9.3-17.3); White Blood Count 8.7 T/CUMM (4-12)
[2017-07-06 07:28] LABS: Phenytoin (Dilantin) 3.6 UG/ML (10-20)
[2017-07-06 07:30] LABS: Calcium 8.7 MG/DL (8.5-10.1); Magnesium 1.6 MG/DL (1.8-2.4); Osmolality,Calculated 283.3 MOS/KG (273-304)
[2017-07-06] MEDS: INSULIN REGULAR 100 UNIT/ML SUBCUT SCH ×2 (08:47→15:46)
--- NOTE | 2017-07-06 08:59 | Discharge Summary ---
Hospital Course - Hospital Course Hospital Course: The patient was admitted to the hospital with nausea vomiting and abdominal discomfort. The patient was unable to take much oral food. The patient was found to have biliary pancreatitis. The patient was treated conservatively and did not require cholecystectomy. The patient's appetite has returned. The patient did have a seizure while in the hospital. The patient was unable to take his oral antiseizure medications on account of nausea at the time of admission. This is improved and the patient has may transition back to oral antiseizure medications and is now ready for discharge back to senior living. On the date of discharge, chest is clear, abdomen soft, heart has regular rate and rhythm. The patient was screened for tobacco smoking and found to be a never smoker. I gave him 4 minutes tobacco education to encourage him not to start smoking The patient is his own decision maker for healthcare and wishes to be full code The patient's medications were reconciled at the time of admission at time of discharge. Discharge preparations, evaluation, education, and preparation of prescriptions required 32 minutes on the date of discharge. - Time spent with patient Time with patient DS: Greater than 30 minutes Diagnosis - Discharge Diagnosis (1) Abdominal pain Status: Resolved (2) History of BASTING PULLER shunt Status: Chronic (3) Biliary acute pancreatitis Status: Resolved Specialty Discharge - Follow Up or Referrals Follow up with: Stuart Chacon MD [Emergency Provider] - 07/14/17 9:30 am (follow-up in 2 weeks with LFTs and lipase. lab work to be drawn at [facility] on at 8:00) Discharge Plan - Discharge Data Disposition: Disch To Home/Self Care Condition at Discharge: Stable Discharge Diet: diabetic diet Activity: resume usual activities as tolerated - Discharge Medications New Insulin Detemir [Levemir] 20 unit SUBCUT DAILY #10 ml Phenytoin ER Cap [Dilantin Cap] 300 mg PO BID #100 capsule Ursodiol [Actigall] 300 mg PO BID #100 capsule Continue Lacosamide Tab [Vimpat Tab] 100 mg PO Q12H Ferrous Sulfate 325 mg PO DAILY Insulin Regular, Human [NovoLIN R] 0 - 14 units SUBCUT BID Insulin Detemir [Levemir] 25 unit SUBCUT BID Folic Acid Tab 1 mg PO DAILY Cholecalciferol (Vitamin D3) [Vitamin D3] 2,000 unit PO DAILY Valproic Acid 500 mg PO Q8H Multivitamin [Multivitamins] 1 each PO DAILY Alum/Mag/Simeth Liquid [Mylanta Liquid] 30 ml PO Q4H PRN PRN Reason: Indigestion Discontinued Phenytoin ER Cap [Dilantin Cap] 100 mg PO Q8H - Follow Up or Referral Follow Up: Stuart Chacon MD [Emergency Provider] - 07/14/17 9:30 am (follow-up in 2 weeks with LFTs and lipase. lab work to be drawn at [facility] on at 8:00) - Forms/Instructions Instructions: Pancreatitis (DC), Epilepsy (DC) Exam - Constitutional Vitals: Period Temp Pulse Resp BP Sys/Liang Pulse Ox Last 24 Hr 97.0 F-98.5 F 73-84 18-20 116-143/69-79 97-100 Discharge Results Labs on day of discharge: Labs from last 24 hours 07/06/17 07/06/17 07/06/17 07:13 05:51 05:51 WBC RBC Hgb Hct MCV MCH MCHC RDW Plt Count MPV Neut % (Auto) Lymph % (Auto) Banks % (Auto) Eos % (Auto) Baso % (Auto) Neut # (Auto) Lymph # (Auto) Banks # (Auto) Eos # (Auto) Baso # (Auto) Immature Gran % Nucleated RBC % Immature Gran # Nucleated RBCs # Immature Plt Fraction Sodium 141 Potassium 4.0 Chloride 104 Carbon Dioxide 30 Anion Gap 11.0 BUN 15 Creatinine 1.10 GFR Calculation 114 BUN/Creatinine Ratio 13.00 Glucose 140 H POC Glucose 137 H Calculated Osmolality 283.3 Calcium 8.7 Magnesium 1.6 L Phenytoin 3.6 L Valproic Acid 75.0 07/06/17 07/05/17 07/05/17 05:51 20:01 15:29 WBC 8.7 RBC 3.16 L Hgb 8.7 L Hct 25.7 L MCV 81.3 L MCH 28 MCHC 33.9 RDW 15.2 Plt Count 186 MPV 9.9 Neut % (Auto) 60.9 Lymph % (Auto) 21.7 Banks % (Auto) 11.0 Eos % (Auto) 3.8 Baso % (Auto) 0.5 Neut # (Auto) 5.3 Lymph # (Auto) 1.9 Banks # (Auto) 1.0 H Eos # (Auto) 0.3 Baso # (Auto) 0.0 Immature Gran % 2.1 Nucleated RBC % 0.2 Immature Gran # 0.18 Nucleated RBCs # 0.02 Immature Plt Fraction 0.0 Sodium Potassium Chloride Carbon Dioxide Anion Gap BUN Creatinine GFR Calculation BUN/Creatinine Ratio Glucose POC Glucose 215 H 271 H Calculated Osmolality Calcium Magnesium Phenytoin Valproic Acid 07/05/17 10:55 WBC RBC Hgb Hct MCV MCH MCHC RDW Plt Count MPV Neut % (Auto) Lymph % (Auto) Banks % (Auto) Eos % (Auto) Baso % (Auto) Neut # (Auto) Lymph # (Auto) Banks # (Auto) Eos # (Auto) Baso # (Auto) Immature Gran % Nucleated RBC % Immature Gran # Nucleated RBCs # Immature Plt Fraction Sodium Potassium Chloride Carbon Dioxide Anion Gap BUN Creatinine GFR Calculation BUN/Creatinine Ratio Glucose POC Glucose 294 H Calculated Osmolality Calcium Magnesium Phenytoin Valproic Acid DS: Provider Date of admission: 06/27/17 21:28 Primary care physician: . No PCP Attending physician on admission: Chris Fang MD Consults: 06/27/17 21:28 Consult to Physician [CONS] Routine Comment: patient known to you Consulting Provider: Stuart Chacon Consulting Provider Notified: Yes When should Consulting Provider be notified: Now Person Notified: christine called Date Notified: 06/28/17 Time Notified: 08:46 Consult to Physician [CONS] Routine Comment: possibly needs ercp Consulting Provider: Frank Ramirez Consulting Provider Notified: Yes When should Consulting Provider be notified: Now Consult to Specialist Group: Gastroenterology When should Consulting Provider be notified: In am Person Notified: mikel called Date Notified: 06/28/17 Time Notified: 07:17 06/27/17 23:15 Consult to Dietitian [CONS] Routine Reason for Dietitian: Other 07/03/17 10:31 Consult to Physician [CONS] Routine Comment: please evaluate for seizures Consulting Provider: Neptali Godinez When should Consulting Provider be notified: Now When should Consulting Provider be notified: Now Person Notified: Dr. Godinez Date Notified: 07/03/17 Time Notified: 12:38 Discharging clinician: Raul Mora MD
[2017-07-06] MEDS: URSODIOL 300 MG CAPSULE PO SCH (09:14)
[2017-07-06] MEDS: LACOSAMIDE 50 MG TABLET PO SCH (09:14)
[2017-07-06] MEDS: PHENYTOIN ER 100 MG CAPSULE PO SCH ×2 (09:14→15:46)
[2017-07-06] MEDS: PANTOPRAZOLE 40 MG TABLET PO SCH (09:14)
[2017-07-06] MEDS: DIVALPROEX 500 MG TABLET PO SCH ×2 (09:14→15:46)
[2017-07-06] MEDS: ALLOPURINOL 100 MG TABLET PO SCH (09:14)
[2017-07-06 15:44] VITALS: BP 125/72
--- NOTE | 2017-07-07 14:39 | Physician Query Form ---
CLICK EDIT DOCUMENT TO SELECT QUERY ANSWER --> OK --> SIGN Mae Betancourt RN, CCDS Certified Clinical Road Mender W) [phone] (f) [phone] [email or web address] PROVIDERS: Make your selection(s) from the choices in EACH section by typing an "x" and enter comments in the comment section. Please use your independent medical judgment in providing your response. This request does not imply that any particular answer is desired or expected. CLINICAL INDICATORS: (Providers should not edit this section) The medical record indicates that the patient was admitted for pancreatitis, Sodium of 129# on the that increased to 141# on the and the patient was on LR (13 liters during stay). Based on the above, could you clarify the appropriate diagnosis, if significant , that supports the above abnormalities and additional evaluation, monitoring, and/or treatment rendered: (X ) Patient was monitored or treated for Hyponatremia ( ) Patient was not monitored or treated for Hyponatremia ( ) Other, please specify: ( ) Clinically unable to determine COMMENTS: PLEASE ALSO DOCUMENT RESPONSE IN PROGRESS NOTES AND/OR DISCHARGE SUMMARY Use of terms such as suspected, likely, or probable (associated with a specific diagnosis that is being evaluated, monitored, or treated as if it exists) are acceptable and can be restated in the discharge summary if not ruled out. MTDD
== END 2017-07-06 17:37 | disposition home or self-care (01) | DRG 439 ==
LOC: EDUNIT# → EDBD → N.ED 17:48 → SUATTDRO 21:28 → N.EDINP 21:28 → N.3E 21:53
PROVIDERS: ADMIT Internal Medicine; ATTEND Internal Medicine
PROC: ERCPWSP (ICD-10-PCS; 2017-06-29 11:35)

== ENCOUNTER 2021-02-17 13:38 | Inpatient (IN) ==
[2021-02-17] MEDS ORDERED: DEXTROSE 5% 1,000 ML IV SCH (14:00)
[2021-02-17 14:49] LABS: Basophils % 0.2 % (0.0-0.8); Eosinophils # 0.2 10*3/uL (0.0-0.87); Eosinophils % 0.9 % (0.00-10.9); Hemoglobin 10.6 GM/DL (14.0-18.0); Immature Granulocytes % 0.5 %; Immature Granulocytes Absolute 0.08 #; Lymphocytes # 1.8 10*3/uL (1.4-4.0); Lymphocytes % 10.3 % (21.2-54.2); Mean Corpuscular HGB Conc 31.2 GM/DL (32-36); Mean Corpuscular Volume 86.7 FL (87-102); Mean Platelet Volume 8.9 FL (9.6-12.0); Monocytes % 7.1 % (1.7-12.7); Platelet Count 262 T/CUMM (130-400); Red Blood Count 3.92 MC/CUMM (3.8-5.5); Red Cell Distribution Width 15.9 % (9.3-17.3); White Blood Count 17.5 T/CUMM (4-12)
[2021-02-17 15:17] LABS: Alanine Aminotransferase 9 U/L (16-61); Albumin 2.5 G/DL (3.4-5.0); Alkaline Phosphatase 155 U/L (45-117); Aspartate Amino Transferase 8 U/L (0-37); Bilirubin,Total < 0.39 MG/DL (0.2-1.0); Blood Urea Nitrogen 23 MG/DL (7-18); Carbon Dioxide 28 MMOL/L (21-32); Estimated Glom Filtration Rate 76 ML/MIN; Glucose 52 MG/DL (74-106); Potassium 3.7 MMOL/L (3.5-5.1); Sodium 143 MMOL/L (136-145); Total Protein 7.8 G/DL (6.4-8.2)
[2021-02-17 15:26] LABS: Bilirubin,Urine Negative (Negative); Blood, Urine Large mg/dL (Negative); Calcium Oxalate Crystals,Urine Few /HPF (Few); Glucose,Urine (UA) Negative (Negative); Ketones,Urine Negative (Negative); Mucus,Urine Occasional /LPF (Occasional); Nitrite,Urine Negative (Negative); Protein,Urine Negative; RBC,Urine 136 /HPF (0-4); Squamous Epithelial Cell,Urine Occasional /HPF (0-10); Urine Appearance CLEAR (Clear); Urine Color Yellow (Yellow); Urine Specific Gravity 1.016 (1.001-1.035); Urine Urobilinogen < 2.0 EU/DL (0.2-1.0); WBC,Urine 8 /HPF (0-6)
[2021-02-17] MEDS ORDERED: cefTRIAXone 1,000 MG in SODIUM CHLORIDE 0.9% 100 ML IV STA (15:45)
[2021-02-17] MEDS ORDERED: DEXTROSE 50% 25 GM/50 ML VIAL IV PRN (16:21)
[2021-02-17] MEDS ORDERED: GLUCAGON 1 MG VIAL IM PRN (16:21)
[2021-02-17] MEDS ORDERED: DEXTROSE 50% 25 GM/50 ML SYRINGE IV ONE (16:22)
[2021-02-17] MEDS ORDERED: ACETAMINOPHEN 325 MG TABLET PO PRN (16:26)
[2021-02-17] MEDS ORDERED: DEXTROSE 50% 25 GM/50 ML VIAL IV STA (16:27)
[2021-02-17] MEDS ORDERED: DEXTROSE 10% 250 ML IV ONE (16:31)
[2021-02-17] MEDS: DEXTROSE 10% 1,000 ML IV SCH (16:43)
[2021-02-17] MEDS ORDERED: DEXTROSE 10% 1,000 ML IV SCH (17:00)
[2021-02-17] MEDS: ENOXAPARIN 40 MG/0.4 ML SYRINGE SUBCUT SCH (22:58)
[2021-02-18] MEDS: DEXTROSE 10% 1,000 ML IV SCH (05:08)
[2021-02-18 07:55] LABS: Basophils % 0.4 % (0.0-0.8); Eosinophils # 0.1 10*3/uL (0.0-0.87); Eosinophils % 1.4 % (0.00-10.9); Hematocrit 34.2 VOL% (42.0-52.0); Hemoglobin 10.7 GM/DL (14.0-18.0); Immature Granulocytes % 0.4 %; Immature Granulocytes Absolute 0.03 #; Lymphocytes # 1.2 10*3/uL (1.4-4.0); Lymphocytes % 14.3 % (21.2-54.2); Mean Corpuscular HGB Conc 31.3 GM/DL (32-36); Mean Corpuscular Volume 85.3 FL (87-102); Monocytes % 12.7 % (1.7-12.7); Neutrophils % 70.8 % (38.7-73.9); Platelet Count 256 T/CUMM (130-400); Red Blood Count 4.01 MC/CUMM (3.8-5.5); Red Cell Distribution Width 15.8 % (9.3-17.3); White Blood Count 8.1 T/CUMM (4-12)
[2021-02-18 08:25] LABS: Alanine Aminotransferase < 6 U/L (16-61); Albumin 2.5 G/DL (3.4-5.0); Alkaline Phosphatase 163 U/L (45-117); Aspartate Amino Transferase 6 U/L (0-37); Blood Urea Nitrogen 22 MG/DL (7-18); Calcium 9.3 MG/DL (8.5-10.1); Carbon Dioxide 26 MMOL/L (21-32); Estimated Glom Filtration Rate 82 ML/MIN; Glucose 151 MG/DL (74-106); Osmolality,Calculated 280.7 MOS/KG (273-304); Potassium 3.7 MMOL/L (3.5-5.1); Sodium 138 MMOL/L (136-145); Total Protein 8.1 G/DL (6.4-8.2)
[2021-02-18] MEDS ORDERED: cefTRIAXone 1,000 MG in SYRINGE 1 EACH IV SCH (09:00)
[2021-02-18] MEDS ORDERED: PANTOPRAZOLE 40 MG TABLET PO SCH (09:00)
[2021-02-18] MEDS ORDERED: PROMETHAZINE 25 MG/1 ML VIAL IM PRN (10:46)
[2021-02-18] MEDS ORDERED: dimenhyDRINATE 50 MG TABLET PO PRN (10:46)
[2021-02-18] MEDS ORDERED: POLYETHYLENE GLYCOL POWDER 17 GM PACK PO PRN (10:46)
[2021-02-18] MEDS ORDERED: ALUMINUM/MAGNES/SIMETH MAX STR 30 ML UDCUP PO PRN (10:54)
[2021-02-18] MEDS: DIVALPROEX 500 MG TABLET PO SCH ×2 (17:22→21:17)
[2021-02-18] MEDS: ONDANSETRON 4 MG/2 ML VIAL IV PRN (17:22)
[2021-02-18] MEDS: ENOXAPARIN 40 MG/0.4 ML SYRINGE SUBCUT SCH (21:17)
[2021-02-18] MEDS: ursodioL 300 MG CAPSULE PO SCH (21:17)
[2021-02-18] MEDS: LACOSAMIDE 50 MG TABLET PO SCH (21:17)
[2021-02-19] MEDS: PANTOPRAZOLE 20 MG TABLET PO SCH (06:04)
[2021-02-19 06:25] LABS: Calcium 8.8 MG/DL (8.5-10.1); Osmolality,Calculated 279.5 MOS/KG (273-304); Potassium 3.9 MMOL/L (3.5-5.1)
[2021-02-19] MEDS: LACOSAMIDE 50 MG TABLET PO SCH ×2 (09:21→21:52)
[2021-02-19] MEDS: MULTIVITAMIN (CENTRUM) TABLET PO SCH (09:21)
[2021-02-19] MEDS: CHOLECALCIFEROL 1,000 UNIT TABLET PO SCH (09:21)
[2021-02-19] MEDS: FOLIC ACID 1 MG TABLET PO SCH (09:21)
[2021-02-19] MEDS: ursodioL 300 MG CAPSULE PO SCH ×2 (09:22→21:52)
[2021-02-19] MEDS: DIVALPROEX 500 MG TABLET PO SCH ×3 (09:22→21:52)
[2021-02-19] MEDS: FERROUS SULFATE 325 MG TABLET PO SCH (09:22)
[2021-02-19] MEDS: ONDANSETRON 4 MG/2 ML VIAL IV PRN (09:24)
[2021-02-19] MEDS: ENOXAPARIN 40 MG/0.4 ML SYRINGE SUBCUT SCH (21:52)
[2021-02-20 06:01] LABS: Basophils % 0.3 % (0.0-0.8); Eosinophils # 0.1 10*3/uL (0.0-0.87); Hematocrit 30.6 VOL% (42.0-52.0); Immature Granulocytes % 0.5 %; Immature Granulocytes Absolute 0.04 #; Lymphocytes # 1.2 10*3/uL (1.4-4.0); Lymphocytes % 15.1 % (21.2-54.2); Mean Corpuscular HGB Conc 32.7 GM/DL (32-36); Mean Corpuscular Volume 82.3 FL (87-102); Mean Platelet Volume 8.8 FL (9.6-12.0); Monocytes % 11.7 % (1.7-12.7); Neutrophils % 71.4 % (38.7-73.9); Platelet Count 221 T/CUMM (130-400); Red Blood Count 3.72 MC/CUMM (3.8-5.5); Red Cell Distribution Width 15.2 % (9.3-17.3); White Blood Count 7.8 T/CUMM (4-12)
[2021-02-20 06:11] LABS: Calcium 9.1 MG/DL (8.5-10.1); Osmolality,Calculated 277.7 MOS/KG (273-304); Potassium 3.9 MMOL/L (3.5-5.1)
[2021-02-20] MEDS: PANTOPRAZOLE 20 MG TABLET PO SCH (06:17)
[2021-02-20] MEDS: FOLIC ACID 1 MG TABLET PO SCH (08:46)
[2021-02-20] MEDS: ursodioL 300 MG CAPSULE PO SCH ×2 (08:46→20:23)
[2021-02-20] MEDS: LACOSAMIDE 50 MG TABLET PO SCH ×2 (08:46→20:23)
[2021-02-20] MEDS: DIVALPROEX 500 MG TABLET PO SCH ×3 (08:47→20:23)
[2021-02-20] MEDS: CHOLECALCIFEROL 1,000 UNIT TABLET PO SCH (08:47)
[2021-02-20] MEDS: MULTIVITAMIN (CENTRUM) TABLET PO SCH (08:47)
[2021-02-20] MEDS: FERROUS SULFATE 325 MG TABLET PO SCH (08:47)
[2021-02-20] MEDS: ENOXAPARIN 40 MG/0.4 ML SYRINGE SUBCUT SCH (20:23)
[2021-02-21 05:22] LABS: Basophils % 0.3 % (0.0-0.8); Eosinophils # 0.1 10*3/uL (0.0-0.87); Eosinophils % 1.7 % (0.00-10.9); Hematocrit 29.4 VOL% (42.0-52.0); Hemoglobin 9.7 GM/DL (14.0-18.0); Immature Granulocytes % 0.5 %; Immature Granulocytes Absolute 0.03 #; Lymphocytes # 1.3 10*3/uL (1.4-4.0); Lymphocytes % 20.3 % (21.2-54.2); Mean Corpuscular Volume 82.4 FL (87-102); Mean Platelet Volume 8.6 FL (9.6-12.0); Monocytes % 14.2 % (1.7-12.7); Platelet Count 224 T/CUMM (130-400); Red Blood Count 3.57 MC/CUMM (3.8-5.5); Red Cell Distribution Width 15.2 % (9.3-17.3); White Blood Count 6.6 T/CUMM (4-12)
[2021-02-21] MEDS: PANTOPRAZOLE 20 MG TABLET PO SCH (05:38)
[2021-02-21 05:42] LABS: Osmolality,Calculated 274.8 MOS/KG (273-304); Potassium 3.9 MMOL/L (3.5-5.1)
[2021-02-21] MEDS: FOLIC ACID 1 MG TABLET PO SCH (08:07)
[2021-02-21] MEDS: MULTIVITAMIN (CENTRUM) TABLET PO SCH (08:07)
[2021-02-21] MEDS: CHOLECALCIFEROL 1,000 UNIT TABLET PO SCH (08:07)
[2021-02-21] MEDS: FERROUS SULFATE 325 MG TABLET PO SCH (08:07)
[2021-02-21] MEDS: ursodioL 300 MG CAPSULE PO SCH ×2 (08:07→20:59)
[2021-02-21] MEDS: LACOSAMIDE 50 MG TABLET PO SCH ×2 (08:07→20:59)
[2021-02-21] MEDS: DIVALPROEX 500 MG TABLET PO SCH ×3 (08:07→20:59)
[2021-02-21 10:14] LABS: Alanine Aminotransferase < 6 U/L (16-61); Albumin 2.3 G/DL (3.4-5.0); Alkaline Phosphatase 145 U/L (45-117); Aspartate Amino Transferase 5 U/L (0-37); Bilirubin,Total < 0.39 MG/DL (0.2-1.0); Blood Urea Nitrogen 21 MG/DL (7-18); Calcium 8.9 MG/DL (8.5-10.1); Carbon Dioxide 22 MMOL/L (21-32); Estimated Glom Filtration Rate 100 ML/MIN; Glucose 85 MG/DL (74-106); Osmolality,Calculated 274.8 MOS/KG (273-304); Potassium 3.9 MMOL/L (3.5-5.1); Sodium 137 MMOL/L (136-145); Total Protein 7.1 G/DL (6.4-8.2)
[2021-02-21] MEDS: ENOXAPARIN 40 MG/0.4 ML SYRINGE SUBCUT SCH (20:59)
[2021-02-21] MEDS: traMADol 50 MG TABLET PO PRN (22:33)
[2021-02-22] MEDS: PANTOPRAZOLE 20 MG TABLET PO SCH (05:32)
[2021-02-22 06:49] LABS: Basophils % 0.3 % (0.0-0.8); Eosinophils # 0.1 10*3/uL (0.0-0.87); Eosinophils % 1.9 % (0.00-10.9); Hematocrit 30.4 VOL% (42.0-52.0); Hemoglobin 9.9 GM/DL (14.0-18.0); Immature Granulocytes % 0.6 %; Immature Granulocytes Absolute 0.04 #; Lymphocytes # 1.5 10*3/uL (1.4-4.0); Lymphocytes % 21.7 % (21.2-54.2); Mean Corpuscular HGB Conc 32.6 GM/DL (32-36); Mean Corpuscular Volume 83.1 FL (87-102); Mean Platelet Volume 9.5 FL (9.6-12.0); Monocytes % 13.1 % (1.7-12.7); Neutrophils % 62.4 % (38.7-73.9); Platelet Count 230 T/CUMM (130-400); Red Blood Count 3.66 MC/CUMM (3.8-5.5); White Blood Count 6.8 T/CUMM (4-12)
[2021-02-22] MEDS: FOLIC ACID 1 MG TABLET PO SCH (08:00)
[2021-02-22] MEDS: FERROUS SULFATE 325 MG TABLET PO SCH (08:00)
[2021-02-22] MEDS: DIVALPROEX 500 MG TABLET PO SCH ×3 (08:00→21:15)
[2021-02-22] MEDS: CHOLECALCIFEROL 1,000 UNIT TABLET PO SCH (08:00)
[2021-02-22] MEDS: LACOSAMIDE 50 MG TABLET PO SCH ×2 (08:00→21:15)
[2021-02-22] MEDS: MULTIVITAMIN (CENTRUM) TABLET PO SCH (08:00)
[2021-02-22] MEDS: ursodioL 300 MG CAPSULE PO SCH ×2 (08:00→21:15)
[2021-02-22 09:35] LABS: Atypical Lymphocytes Few; Hypochromasia Slight; Platelet Estimate Normal; Schistocytes Slight
[2021-02-22 10:44] LABS: Alanine Aminotransferase 277 U/L (16-61); Albumin 2.4 G/DL (3.4-5.0); Alkaline Phosphatase 137 U/L (45-117); Aspartate Amino Transferase 7 U/L (0-37); Bilirubin,Total < 0.39 MG/DL (0.2-1.0); Blood Urea Nitrogen 24 MG/DL (7-18); Calcium 8.9 MG/DL (8.5-10.1); Carbon Dioxide 23 MMOL/L (21-32); Estimated Glom Filtration Rate 100 ML/MIN; Glucose 122 MG/DL (74-106); Osmolality,Calculated 270.4 MOS/KG (273-304); Potassium 4.1 MMOL/L (3.5-5.1); Sodium 133 MMOL/L (136-145); Total Protein 7.2 G/DL (6.4-8.2)
[2021-02-22] MEDS: traMADol 50 MG TABLET PO PRN (21:16)
[2021-02-22] MEDS: ENOXAPARIN 40 MG/0.4 ML SYRINGE SUBCUT SCH (21:16)
[2021-02-23] MEDS: PANTOPRAZOLE 20 MG TABLET PO SCH ×2 (04:35→05:36)
[2021-02-23 05:05] LABS: Basophils % 0.3 % (0.0-0.8); Eosinophils # 0.1 10*3/uL (0.0-0.87); Eosinophils % 1.1 % (0.00-10.9); Hemoglobin 9.7 GM/DL (14.0-18.0); Immature Granulocytes % 0.5 %; Immature Granulocytes Absolute 0.05 #; Lymphocytes # 1.3 10*3/uL (1.4-4.0); Lymphocytes % 12.6 % (21.2-54.2); Mean Corpuscular HGB Conc 32.3 GM/DL (32-36); Mean Corpuscular Volume 82.9 FL (87-102); Mean Platelet Volume 8.8 FL (9.6-12.0); Monocytes % 10.1 % (1.7-12.7); Neutrophils % 75.4 % (38.7-73.9); Platelet Count 258 T/CUMM (130-400); Red Blood Count 3.62 MC/CUMM (3.8-5.5); Red Cell Distribution Width 14.8 % (9.3-17.3); White Blood Count 10.2 T/CUMM (4-12)
[2021-02-23 05:25] LABS: Alanine Aminotransferase < 6 U/L (16-61); Albumin 2.4 G/DL (3.4-5.0); Alkaline Phosphatase 138 U/L (45-117); Aspartate Amino Transferase 5 U/L (0-37); Blood Urea Nitrogen 22 MG/DL (7-18); Calcium 9.1 MG/DL (8.5-10.1); Carbon Dioxide 25 MMOL/L (21-32); Estimated Glom Filtration Rate 100 ML/MIN; Glucose 105 MG/DL (74-106); Osmolality,Calculated 272.1 MOS/KG (273-304); Potassium 4.4 MMOL/L (3.5-5.1); Sodium 135 MMOL/L (136-145); Total Protein 7.2 G/DL (6.4-8.2)
[2021-02-23] MEDS: LACOSAMIDE 50 MG TABLET PO SCH (10:06)
[2021-02-23] MEDS: MULTIVITAMIN (CENTRUM) TABLET PO SCH (10:06)
[2021-02-23] MEDS: CHOLECALCIFEROL 1,000 UNIT TABLET PO SCH (10:06)
[2021-02-23] MEDS: FOLIC ACID 1 MG TABLET PO SCH (10:07)
[2021-02-23] MEDS: ursodioL 300 MG CAPSULE PO SCH (10:07)
[2021-02-23] MEDS: DIVALPROEX 500 MG TABLET PO SCH (10:07)
[2021-02-23] MEDS: FERROUS SULFATE 325 MG TABLET PO SCH (10:07)
[2021-02-23 12:24] VITALS: BP 134/71
== END 2021-02-23 12:26 | DRG 392 ==
LOC: EDUNIT# → EDBD → N.EDINP 13:38 → N.ED 13:38 → SUATTDRO 16:12 → N.EDINP 17:40 → N.5E 17:51 → SUATTDRO 02-20 12:35
PROVIDERS: ADMIT Internal Medicine; ATTEND Internal Medicine Geriatric Medicine